=== PATIENT | female | born 1955 | race Two or more races ===

== ENCOUNTER → 2022-12-05 | Outpatient (CLI) | payer OTHER ==
[2022-12-05 08:00] LABS: Basophils # (auto) 0 10 ^3/uL (0-0.2); Basophils % (auto) 0.6 % (0.0-2.0); Eosinophils # (auto) 0.1 10 ^3/uL (0-0.8); Eosinophils % (auto) 3.3 % (0.0-7.0); Hematocrit 37.7 % (36.0-46.0); Hemoglobin 12.5 g/dL (12.2-16.2); Lymphocytes # (auto) 1.5 10 ^3/uL (0.4-5.4); Lymphocytes % (auto) 43.1 % (10.0-50.0); Mean Corpuscular Volume 90.8 fL (80.0-100.0); Monocytes # (auto) 0.4 10 ^3/uL (0-1.3); Monocytes % (auto) 11.2 % (0.0-12.0); Neutrophils # (auto) 1.5 10 ^3/uL (1.6-8.6); Neutrophils % (auto) 41.8 % (37.0-80.0); Nucleated Red Blood Cells % 0.1 %; Red Blood Cells 4.15 10^6/uL (4.0-5.20); Red Cell Distribution Width 14.6 % (11.8-14.3); White Blood Cell 3.5 10^3/uL (4.4-10.8)
[2022-12-05 08:18] LABS: Urine Bacteria NONE SEEN /hpf (None Seen); Urine Blood 1+ /uL (Negative); Urine Hyaline Cast FEW /lpf (0 - 2); Urine Mucus FEW (None Seen); Urine Specific Gravity 1.013 (1.001-1.035); Urine WBC 67 /hpf (0 - 5)
[2022-12-05 08:55] LABS: Magnesium 2.2 mg/dL (1.6-2.6); Potassium 4.5 mmol/L (3.5-5.1)
[2022-12-05 09:05] LABS: Albumin 3.9 g/dL (3.4-5.0); BUN/Creatinine Ratio 30.7 (10.0-20.0); Bilirubin, Total 0.4 mg/dL (0.2-1.0); Calcium 9.3 mg/dL (8.5-10.1); Total Protein 7.8 g/dL (6.4-8.2); Uric Acid 5.6 mg/dL (2.6-6.0)
[2022-12-05 09:08] LABS: Folate (Folic Acid) > 24.00 ng/mL (5.38-24)
== END | disposition home or self-care (01) ==
LOC: LAB 07:36
PROVIDERS: ATTEND Nurse Practitioner Family
DX: I10 Essential (primary) hypertension (principal); E78.5 Hyperlipidemia, unspecified; J30.9 Allergic rhinitis, unspecified; H60.503 Unspecified acute noninfective otitis externa, bilateral
CPT/HCPCS: 36415; 80053; 80061; 81001; 82306; 82607; 82746; 83036; 83735; 84443; 84550; 85025; 87086

== ENCOUNTER → 2023-06-26 | Outpatient (CLI) | payer OTHER ==
[2023-06-26 10:24] LABS: Basophils # (auto) 0 10 ^3/uL (0-0.2); Basophils % (auto) 0.5 % (0.0-2.0); Eosinophils # (auto) 0.1 10 ^3/uL (0-0.8); Eosinophils % (auto) 2.9 % (0.0-7.0); Hematocrit 37.8 % (36.0-46.0); Hemoglobin 12.5 g/dL (12.2-16.2); Lymphocytes # (auto) 1.5 10 ^3/uL (0.4-5.4); Lymphocytes % (auto) 49.3 % (10.0-50.0); Mean Corpuscular Hgb Conc. 33.1 g/dL (32.0-36.0); Mean Corpuscular Volume 90.9 fL (80.0-100.0); Monocytes # (auto) 0.3 10 ^3/uL (0-1.3); Monocytes % (auto) 9.4 % (0.0-12.0); Neutrophils # (auto) 1.2 10 ^3/uL (1.6-8.6); Neutrophils % (auto) 37.9 % (37.0-80.0); Nucleated Red Blood Cells % 0.1 %; Red Blood Cells 4.16 10^6/uL (4.0-5.20); Red Cell Distribution Width 13.8 % (11.8-14.3); White Blood Cell 3.1 10^3/uL (4.4-10.8)
[2023-06-26 10:55] LABS: Urine Bacteria NONE SEEN /hpf (None Seen); Urine Blood 2+ /uL (Negative); Urine Clarity HAZY (Clear); Urine Color Yellow (Yellow); Urine Mucus FEW (None Seen); Urine Protein, UAD 1+ (Negative); Urine Specific Gravity 1.016 (1.001-1.035); Urine Urobilinogen Normal (Negative); Urine WBC 145 /hpf (0 - 5); Urine WBC Clumps PRESENT /hpf (None Seen); Urine pH 5.5 (5.0-8.0)
[2023-06-26 11:09] LABS: Folate (Folic Acid) > 24.00 ng/mL (>5.38)
[2023-06-26 11:49] LABS: Alanine Aminotransferase 15 U/L (7-40); Alkaline Phosphatase 61 U/L (46-116); Chloride 107 mmol/L (98-107); Potassium 4.3 mmol/L (3.5-5.1); Sodium 141 mmol/L (136-145)
[2023-06-26 11:50] LABS: Anion Gap 9 (5-15); Calcium 10.1 mg/dL (8.5-10.1); Carbon Dioxide 25 mmol/L (20-30)
[2023-06-26 11:55] LABS: BUN/Creatinine Ratio 20.7 (10.0-20.0); Blood Urea Nitrogen 17 mg/dL (9-23); Glucose 91 mg/dL (74-106); Triglycerides 70 mg/dL (< 150)
[2023-06-26 11:56] LABS: LDL Cholesterol 61 mg/dL (< 100)
[2023-06-26 11:57] LABS: Albumin 4.6 g/dL (3.2-4.8); Aspartate Aminotransferase 20 U/L (13-40); Bilirubin, Total 0.5 mg/dL (0.2-1.0); Cholesterol 149 mg/dL (< 200); HDL Cholesterol 71 mg/dL (40-59); Total Protein 7.5 g/dL (5.7-8.2)
[2023-06-26 13:28] LABS: Uric Acid 5.1 mg/dL (3.1-7.8)
== END | disposition home or self-care (01) ==
LOC: LAB 09:49
PROVIDERS: ATTEND Internal Medicine
DX: E61.2 Magnesium deficiency (principal); E79.0 Hyperuricemia without signs of inflammatory arthritis and tophaceous disease; R94.6 Abnormal results of thyroid function studies; E55.9 Vitamin D deficiency, unspecified; R82.998 Other abnormal findings in urine; D51.9 Vitamin B12 deficiency anemia, unspecified; R82.79 Other abnormal findings on microbiological examination of urine; R78.89 Finding of other specified substances, not normally found in blood; E78.49 Other hyperlipidemia; R68.89 Other general symptoms and signs; R73.09 Other abnormal glucose
CPT/HCPCS: 36415; 80053; 80061; 81001; 82306; 82607; 82746; 83036; 83735; 84443; 84550; 85025; 87086

== ENCOUNTER → 2023-12-04 | Outpatient (CLI) | payer OTHER ==
[2023-12-04 08:43] LABS: Basophils # (auto) 0 10 ^3/uL (0-0.2); Basophils % (auto) 0.5 % (0.0-2.0); Eosinophils # (auto) 0.1 10 ^3/uL (0-0.8); Hemoglobin 11.9 g/dL (12.2-16.2); Lymphocytes # (auto) 1.2 10 ^3/uL (0.4-5.4); Lymphocytes % (auto) 41.9 % (10.0-50.0); Mean Corpuscular Hgb Conc. 33.1 g/dL (32.0-36.0); Mean Corpuscular Volume 90.6 fL (80.0-100.0); Monocytes # (auto) 0.3 10 ^3/uL (0-1.3); Monocytes % (auto) 9.1 % (0.0-12.0); Neutrophils # (auto) 1.3 10 ^3/uL (1.6-8.6); Neutrophils % (auto) 43.5 % (37.0-80.0); Red Blood Cells 3.98 10^6/uL (4.0-5.20); Red Cell Distribution Width 14.7 % (11.8-14.3); White Blood Cell 2.9 10^3/uL (4.4-10.8)
[2023-12-04 09:06] LABS: Alanine Aminotransferase 22 U/L (7-40); Albumin 4.5 g/dL (3.2-4.8); Alkaline Phosphatase 67 U/L (46-116); Anion Gap 5 (5-15); Aspartate Aminotransferase 44 U/L (13-40); BUN/Creatinine Ratio 29.4 (10.0-20.0); Blood Urea Nitrogen 25 mg/dL (9-23); Carbon Dioxide 27 mmol/L (20-30); Chloride 109 mmol/L (98-107); Cholesterol 172 mg/dL (< 200); Glucose 86 mg/dL (74-106); HDL Cholesterol 69 mg/dL (40-59); LDL Cholesterol 70 mg/dL (< 100); Potassium 4.2 mmol/L (3.5-5.1); Sodium 141 mmol/L (136-145); Triglycerides 96 mg/dL (< 150)
[2023-12-04 09:07] LABS: Bilirubin, Total 0.6 mg/dL (0.2-1.0); Total Protein 7.3 g/dL (5.7-8.2)
[2023-12-04 09:26] LABS: Folate (Folic Acid) 32.33 ng/mL (>5.38)
[2023-12-04 09:30] LABS: Magnesium 1.9 mg/dL (1.6-2.6)
== END | disposition home or self-care (01) ==
LOC: LAB 08:13
PROVIDERS: ATTEND Internal Medicine
DX: I10 Essential (primary) hypertension (principal); E78.5 Hyperlipidemia, unspecified; R73.03 Prediabetes; R79.89 Other specified abnormal findings of blood chemistry; R78.89 Finding of other specified substances, not normally found in blood
CPT/HCPCS: 36415; 80053; 80061; 82306; 82607; 82746; 83036; 83735; 84443; 84550; 85025; 87086

== ENCOUNTER → 2024-05-23 | Outpatient (CLI) | payer OTHER ==
[2024-05-23 14:15] LABS: Basophils # (auto) 0 10 ^3/uL (0-0.2); Basophils % (auto) 0.2 % (0.0-2.0); Eosinophils # (auto) 0.1 10 ^3/uL (0-0.8); Eosinophils % (auto) 2.1 % (0.0-7.0); Hematocrit 38.1 % (36.0-46.0); Lymphocytes # (auto) 1.4 10 ^3/uL (0.4-5.4); Lymphocytes % (auto) 36.1 % (10.0-50.0); Mean Corpuscular Hemoglobin 30.9 pg (28.0-32.0); Mean Corpuscular Hgb Conc. 34.1 g/dL (32.0-36.0); Mean Corpuscular Volume 90.6 fL (80.0-100.0); Monocytes # (auto) 0.3 10 ^3/uL (0-1.3); Monocytes % (auto) 8.3 % (0.0-12.0); Neutrophils # (auto) 2.1 10 ^3/uL (1.6-8.6); Neutrophils % (auto) 53.3 % (37.0-80.0); Nucleated Red Blood Cells % 0.1 %; Platelet Count (auto) 279 10^3/uL (140-450); Red Cell Distribution Width 14.1 % (11.8-14.3); White Blood Cell 3.9 10^3/uL (4.4-10.8)
[2024-05-23 14:51] LABS: Urine Bacteria FEW /hpf (None Seen); Urine Blood 3+ /uL (Negative); Urine Mucus FEW (None Seen); Urine Protein, UAD 2+ (Negative); Urine Specific Gravity 1.015 (1.001-1.035); Urine Urobilinogen Normal (Negative); Urine WBC 535 /hpf (0 - 5); Urine WBC Clumps PRESENT /hpf (None Seen)
[2024-05-23 14:52] LABS: Urine Clarity Cloudy (Clear); Urine Color Yellow (Yellow)
[2024-05-23 14:53] LABS: Alanine Aminotransferase 16 U/L (7-40); Albumin 4.9 g/dL (3.2-4.8); Alkaline Phosphatase 65 U/L (46-116); Anion Gap 7 (5-15); Aspartate Aminotransferase 21 U/L (13-40); BUN/Creatinine Ratio 22.5 (10.0-20.0); Blood Urea Nitrogen 23 mg/dL (9-23); Calcium 10.7 mg/dL (8.7-10.4); Carbon Dioxide 27 mmol/L (20-31); Chloride 107 mmol/L (98-107); Cholesterol 169 mg/dL (< 200); Glucose 89 mg/dL (74-106); HDL Cholesterol 78 mg/dL (40-59); LDL Cholesterol 70 mg/dL (< 100); Magnesium 2.2 mg/dL (1.6-2.6); Sodium 141 mmol/L (136-145); Triglycerides 76 mg/dL (< 150)
[2024-05-23 14:54] LABS: Bilirubin, Total 0.6 mg/dL (0.2-1.0)
[2024-05-23 15:03] LABS: Uric Acid 5.9 mg/dL (3.1-7.8)
[2024-05-23 15:23] LABS: Folate (Folic Acid) > 48.00 ng/mL (>5.38)
== END | disposition home or self-care (01) ==
LOC: LAB 13:51
PROVIDERS: ATTEND Internal Medicine
DX: I10 Essential (primary) hypertension (principal); E78.5 Hyperlipidemia, unspecified; N39.0 Urinary tract infection, site not specified; R79.89 Other specified abnormal findings of blood chemistry
CPT/HCPCS: 36415; 80053; 80061; 81001; 82306; 82607; 82746; 83036; 83735; 84443; 84550; 85025; 87086

== ENCOUNTER 2024-06-27 15:23 | Inpatient (IN) | payer OTHER ==
[~2024-06-27] VITALS: Ht 152.4 cm; Wt 82.0 kg
--- NOTE | 2024-06-27 16:46 | DVH ---
Exam: CT CT AB PEL WO CON-NO ORAL OR IV History: pelvic pain Comparison Study: None Technique: Multidetector spiral CT of the abdomen and pelvis was performed from lung bases to pubic symphysis. Imaging was performed without IV contrast. Axial, coronal and sagittal multiplanar reform ats were obtained from the axial data set by the technologist. Radiation dose : Abdomen/Pelvis: CTDIvol 9 mGy, DLP 455.17 mGy*cm. Findings: Evaluation of solid organs is limited due to lack of intravenous contrast use. Lung Bases: No acute or significant lung base finding. Normal heart size. No pleural or pericardial effusion. Liver: The liver is normal in size. No focal lesions. Gallbladder and biliary Tree: Unremarkable Spleen: Unremarkable Pancreas: The pancreas is grossly normal in appearance. Adrenal Glands: Unremarkable Kidneys: Moderate to severe left hydronephrosis and hydroureter. No right hydronephrosis. Bladder: Soft tissue density filling most of the bladder measuring up to approximately 81 mm concerni ng for a bladder malignancy. Bowel: The stomach is grossly normal in appearance. Small bowel and colon are normal in caliber and d istribution. The appendix is not visualized; however, no secondary findings of acute appendicitis id entified. Ascites: Absent Lymphadenopathy: No mesenteric, retroperitoneal or periportal lymphadenopathy. Abdominal wall and Mesentery: Unremarkable. Vasculature: The visualized abdominal aorta is normal in size and caliber. Evaluation of abdominal a nd pelvic vessels is limited due to lack of intravenous contrast. Pelvic Organs: Unremarkable Musculoskeletal: Dextroscoliosis with associated multilevel degenerative disease. Grade 1 anterolisth esis of L4 on L5. IMPRESSION: 1. Moderate to severe left hydronephrosis. Large soft tissue mass replacing most of the bladder conc erning for bladder malignancy. Recommend urology evaluation. Lesion could be further evaluated with CT urogram and/or MRI of the pelvis with contrast. Clinical correlation and continued follow-up is re commended. Radiation optimization: All CT scans at this facility use at least one of these dose optimization marcin hniques: Automated exposure control mA and/or kV adjustment per patient size (includes targeted exams where dose is matched to clinical indication) or iterative reconstruction. HS:Y
--- NOTE | 2024-06-27 16:55 | ED.PDOC ---
General HPI Comments HPI: Poor Historian. 69-year-old female presents for evaluation of left lower quadrant pain and suprapubic pain with the associated increased urinary frequency and painful urination. She was treated for UTI proximally a week ago and finished the course. Her symptoms have returned. She said two days ago she had some mild he maturia which has resolved. Her urine now is normal in color. Denies any other associated symptoms. She went to urgent Care was sent here for further evaluation. 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 HEAD: Denies acute: headache, photophobia Eyes: Denies acute: Double vision, vision loss, eye pain, eye discharge. EARS: Denies acute: tinnitus, hearing loss, ear discharge, ear pain, THROAT: Denies acute: sore throat, swelling, difficulty swallowing , pain with swallowing, change in voice. NECK: Denies acute: neck pain, neck swelling, stiff neck. HEART: Denies acute : chest pain, palpitations, LUNGS: Denies acute: SOB, wheezing, cough, hemoptysis ABDOMEN: Denies acute: Nausea, Vomiting, diarrhea, melena , hematemesis, hematochezia SKIN: Denies acute: rash, redness, lesions, itchiness. EXTREMITIES: Denies acute: calf pain, numbness, tingling, weakness, denies pain in extremity. Denies acute: Low back pain. Neuro: Denies acute: focal neurological deficit, motor or sensory focal neurological deficit, tremors, seizure like activity, confusion, dizziness, change in mental status, loss of bowel or bladder function, cauda equina like symptoms. : Denies acute: hematuria, flank pain, PSYCH: Denies acute: hallucination, suicidal ideation, homicidal ideation. FEMALE: Denies acute: abnormal vaginal bleeding, foul odor, unusual discharge. PHYSICAL EXAM: General: no acute distress, awake and alert. Head: normocephalic, atraumatic. Neck: supple, trachea is midline, no swelling. Throat: Normal phonation. Eyes:, no erythema, no purulent discharge, no proptosis, no icterus. Heart: regular rate, regular rhythm, no significant murmur appreciated. Lungs: no apparent respiratory distress, Able to speak in full sentences. No wheezing, no rhonchi, no crackles. No stridors Clear to auscultation bilaterally. Abdomen: Left lower quadrant and suprapubic tender to palpation, non distended, soft, no guarding, no rebound, + bowel sounds. Neuro: Awake, Alert, oriented to name, self, situation, follows commands GCS=15. Speech is normal. Skin: no petechia, no purpura, no cyanosis, non-pale, not jaundice. Lower extremities: --no - Pitting edema no deformity, no focal swelling, no calf TTP. Makes eye contact. moves all four extremities. Face: no apparent facial droop. No CVA tenderness to percussion bilaterally. Ambulating in the ED independently. Chief Complaint: Pelvic Pain Time Seen by MD: 15:33 Reviewed notes: Nurses Notes, Medications, Allergies Allergies: Coded Allergies: NO KNOWN ALLERGIES (Unverified , 06/27/24) Home Meds Reported Medications Cetirizine Hcl (Zyrtec Allergy) 10 Mg Cap, 10 MG PO DAILY for SEASONAL ALLERGIES, CAP 06/28/24 Enalapril Maleate (Enalapril Maleate) 20 Mg Tab, 1 TAB PO DAILY 06/28/24 Rosuvastatin Calcium (Rosuvastatin Calcium) 10 Mg Tab, 1 TAB PO 06/28/24 Information Source: Patient Mode of Arrival: Ambulatory Was a procedure done? Was a procedure done?: No Differential Diagnosis Kidney stone (Female): N/A Urinary Problem (Male): Other (DDX include but not limited to diverticulitis, colitis, gastroenteritis, acute abdomen, SBO, enteritis, constipation, volvulus, appendicitis, Gallbladder disease, choledocolithiasis, ascending cholangitis, pancreatitis, intraAbdominal mass/neoplasm, hepatitis, UTI, pylonephritis, kidney stone, aneurysm, dissection, Inflammatory bowel disease, gastroparesis, ischemic bowel.) X-Ray, Labs, Meds, VS Vital Signs Date Time Temp Pulse Resp B/P (MAP) Pulse Ox O2 Delivery O2 Flow Rate FiO2 06/27/24 15:48 97.6 61 18 126/94 (105) 100 Lab Test 06/27/24 18:36 06/27/24 15:47 Range/Units White Blood Count 3.9 L 4.4-10.8 10^3/uL Red Blood Count 4.21 4.0-5.20 10^6/uL Hemoglobin 12.6 12.2-16.2 g/dL Hematocrit 37.9 36.0-46.0 % Mean Corpuscular Volume 89.9 80.0-100.0 fL Mean Corpuscular Hemoglobin 30.0 28.0-32.0 pg Mean Corpuscular Hemoglobin Concent 33.3 32.0-36.0 g/dL Red Cell Distribution Width 13.8 11.8-14.3 % Platelet Count 278 140-450 10^3/uL Mean Platelet Volume 7.3 6.9-10.8 fL Neutrophils (%) (Auto) 44.4 37.0-80.0 % Lymphocytes (%) (Auto) 43.1 10.0-50.0 % Monocytes (%) (Auto) 9.8 0.0-12.0 % Eosinophils (%) (Auto) 2.0 0.0-7.0 % Basophils (%) (Auto) 0.7 0.0-2.0 % Neutrophils # (Auto) 1.7 1.6-8.6 10 ^3/uL Lymphocytes # (Auto) 1.7 0.4-5.4 10 ^3/uL Monocytes # (Auto) 0.4 0-1.3 10 ^3/uL Eosinophils # (Auto) 0.1 0-0.8 10 ^3/uL Basophils # (Auto) 0 0-0.2 10 ^3/uL Nucleated Red Blood Cells 0.0 % Sodium Level 139 136-145 mmol/L Potassium Level 3.7 3.5-5.1 mmol/L Chloride Level 107 98-107 mmol/L Carbon Dioxide Level 24 20-31 mmol/L Anion Gap 8 5-15 Blood Urea Nitrogen 27 H 9-23 mg/dL Creatinine 1.01 0.550-1.02 mg/dL Glomerular Filtration Rate Calc 60 >90 mL/min BUN/Creatinine Ratio 26.7 H 10.0-20.0 Serum Glucose 91 74-106 mg/dL Lactic Acid Level 0.8 0.4-2.0 mmol/L Calcium Level 10.2 8.7-10.4 mg/dL Total Bilirubin 0.4 0.2-1.0 mg/dL Aspartate Amino Transferase (AST) 20 13-40 U/L Alanine Aminotransferase (ALT) 16 7-40 U/L Alkaline Phosphatase 72 46-116 U/L Total Protein 7.8 5.7-8.2 g/dL Albumin 4.8 3.2-4.8 g/dL Urine Color Light-brown Yellow Urine Clarity Turbid H Clear Urine pH 6.0 5.0-9.0 Urine Specific [place] 1.016 1.001-1.035 Urine Protein 2+ H Negative Urine Ketones Negative Negative Urine Blood 3+ H Negative /uL Urine Nitrite Negative Negative Urine Bilirubin Negative Negative Urine Urobilinogen Normal Negative mg/dL Urine Leukocyte Esterase Negative Negative /uL Urine RBC 1494 0 - 4 /hpf Urine WBC 189 0 - 5 /hpf Urine WBC Clumps Present None Seen /hpf Urine Squamous Epithelial Cells None seen <5 /hpf Urine Bacteria Few H None Seen /hpf Urine Mucus Few None Seen Urine Glucose Normal Normal mg/dL Microbiology Date/Time Source Procedure Growth Status 06/27/24 15:47 Voided Urine Urine Culture - Final Escherichia coli - ESBL Complete [place] [address] Ph: [phone] DIAGNOSTIC IMAGING Diagnostic Imaging Report : [id number] Signed PATIENT: JET SALEH MACCT: [id number] UNIT: [id number] : 1955 LOC: ER ROOM / BED: / AGE / SEX: 69 / F ADM STATUS: REG ER SERVICE [id number] ORDERING PHYSICIAN: LAYNE LANDIN DO PROCEDURE(s): ABPL - CT AB PEL WO CON-NO ORAL OR IV REASON: pelvic pain ORDER NUMBER(s): [id number], ACCESSION NUMBER(s): [id number] Exam: CT CT AB PEL WO CON-NO ORAL OR IV History: pelvic pain Comparison Study: None Technique: Multidetector spiral CT of the abdomen and pelvis was performed from lung bases to pubic symphysis. Imaging was performed without IV contrast. Axial, coronal and sagittal multiplanar reformats were obtained from the axial data set by the technologist. Radiation dose : Abdomen/Pelvis: CTDIvol 9 mGy, DLP 455.17 mGy*cm. Findings: Evaluation of solid organs is limited due to lack of intravenous contrast use. Lung Bases: No acute or significant lung base finding. Normal heart size. No pleural or pericardial effusion. Liver: The liver is normal in size. No focal lesions. Gallbladder and biliary Tree: Unremarkable Spleen: Unremarkable Pancreas: The pancreas is grossly normal in appearance. Adrenal Glands: Unremarkable Kidneys: Moderate to severe left hydronephrosis and hydroureter. No right hydronephrosis. Bladder: Soft tissue density filling most of the bladder measuring up to approximately 81 mm concerning for a bladder malignancy. Bowel: The stomach is grossly normal in appearance. Small bowel and colon are normal in caliber and distribution. The appendix is not visualized; however, no secondary findings of acute appendicitis identified. Ascites: Absent Lymphadenopathy: No mesenteric, retroperitoneal or periportal lymphadenopathy. Abdominal wall and Mesentery: Unremarkable. Vasculature: The visualized abdominal aorta is normal in size and caliber. Evaluation of abdominal and pelvic vessels is limited due to lack of intravenous contrast. Pelvic Organs: Unremarkable Musculoskeletal: Dextroscoliosis with associated multilevel degenerative disease. Grade 1 anterolisthesis of L4 on L5. IMPRESSION: 1. Moderate to severe left hydronephrosis. Large soft tissue mass replacing most of the bladder concerning for bladder malignancy. Recommend urology evaluation. Lesion could be further evaluated with CT urogram and/or MRI of the pelvis with contrast. Clinical correlation and continued follow-up is recommended. Radiation optimization: All CT scans at this facility use at least one of these dose optimization techniques: Automated exposure control mA and/or kV adjustment per patient size (includes targeted exams where dose is matched to clinical abdiel cation) or iterative reconstruction. HS:Y ATED BY: TONY EDWARDS MD DICTATED DATE/TIME: 06/27/241643 SIGNED BY: TONY EDWARDS MD SIGNED DATE/TIME: 06/27/241643 Time of 1ST Reevaluation: 00:00 Reevaluation 1ST: Unchanged Patient Education/Counseling: Diagnosis, Treatment Family Education/Counseling: No Family Present Comments Patient presented with the above HPI.---abdominal pain---workup was initiated. patient was found with the above mentioned diagnosis. the following medications were ordered: Rocephin the following tests were ordered: Labs, , UA, CT abdomen and pelvis Patient ED course and VS have been stabilized. Patient has been reassessed in the ED and remained in a stable condition. Pertinent incidental findings were discussed with the patient and/or family. Patient/family voices understanding and is agreeable with plan. Patient has been observed in the ED adequate length of time to insure improvement/stability. Escalation of care considered: Consideration of escalation to observation or admission Patient was ADMITTED to the medicine team for further evaluation and treatment of their presentation. All the reports of any imaging studies that were ordered by myself were reviewed by myself. Critical Care Note Critical Care Time?: No Departure Time of Disposition: 16:59 Disposition: 09 ADMITTED INPATIENT Diagnosis: UTI, abnormal finding on CT scan, pelvic mass. Condition: Guarded I personally scribed for LAYNE LANDIN DO ([email or web address]) on 06/28/24 at 19:09. Electronically submitted by Bassam Abarca ([email or web address]). LAYNE LANDIN DO Jun 27, 2024 16:55
[2024-06-27 18:20] LABS: Urine Bacteria FEW /hpf (None Seen); Urine Blood 3+ /uL (Negative); Urine Clarity Turbid (Clear); Urine Color Light-Brown (Yellow); Urine Mucus FEW (None Seen); Urine Protein, UAD 2+ (Negative); Urine Specific Gravity 1.016 (1.001-1.035); Urine Squamous Epithelial Cell None Seen /hpf (<5); Urine Urobilinogen Normal (Negative); Urine WBC 189 /hpf (0 - 5); Urine WBC Clumps PRESENT /hpf (None Seen)
[2024-06-27] MEDS ORDERED: ONDANSETRON HCL 4 MG/2 ML VIAL IV PRN (19:15)
[2024-06-27] MEDS ORDERED: ACETAMINOPHEN 325 MG TAB PO PRN (19:15)
[2024-06-27 20:03] LABS: Basophils # (auto) 0 10 ^3/uL (0-0.2); Basophils % (auto) 0.7 % (0.0-2.0); Eosinophils # (auto) 0.1 10 ^3/uL (0-0.8); Hematocrit 37.9 % (36.0-46.0); Hemoglobin 12.6 g/dL (12.2-16.2); Lymphocytes # (auto) 1.7 10 ^3/uL (0.4-5.4); Lymphocytes % (auto) 43.1 % (10.0-50.0); Mean Corpuscular Hgb Conc. 33.3 g/dL (32.0-36.0); Mean Corpuscular Volume 89.9 fL (80.0-100.0); Monocytes # (auto) 0.4 10 ^3/uL (0-1.3); Monocytes % (auto) 9.8 % (0.0-12.0); Neutrophils # (auto) 1.7 10 ^3/uL (1.6-8.6); Neutrophils % (auto) 44.4 % (37.0-80.0); Platelet Count (auto) 278 10^3/uL (140-450); Red Blood Cells 4.21 10^6/uL (4.0-5.20); Red Cell Distribution Width 13.8 % (11.8-14.3); White Blood Cell 3.9 10^3/uL (4.4-10.8)
[2024-06-27 20:24] LABS: Alanine Aminotransferase 16 U/L (7-40); Alkaline Phosphatase 72 U/L (46-116); Anion Gap 8 (5-15); BUN/Creatinine Ratio 26.7 (10.0-20.0); Calcium 10.2 mg/dL (8.7-10.4); Carbon Dioxide 24 mmol/L (20-31); Chloride 107 mmol/L (98-107); Glucose 91 mg/dL (74-106); Potassium 3.7 mmol/L (3.5-5.1); Sodium 139 mmol/L (136-145)
[2024-06-27 20:25] LABS: Albumin 4.8 g/dL (3.2-4.8); Aspartate Aminotransferase 20 U/L (13-40); Bilirubin, Total 0.4 mg/dL (0.2-1.0); Total Protein 7.8 g/dL (5.7-8.2)
[2024-06-27 20:35] LABS: Blood Urea Nitrogen 27 mg/dL (9-23)
--- NOTE | 2024-06-27 20:55 | DVHHP2 ---
History of Present Illness Reason for Visit: Pelvic pain History of Present Illness 69-year-old female presents for evaluation of left pelvic pain. Patient reports a three day history of worsening left lower quadrant/pelvic pain with associated dysuria and hematuria. Denies fever or chills. Denies recent weight loss. Denies any other acute complaints at the moment. Past Medical History Dyslipidemia and hypertension Past Surgical History Ovarian tumor removal Family History Noncontributory Smoke: No ALCOHOL: none Drugs: None Lives: with Family Review of Systems Review of Systems Review of systems are currently negative otherwise dressing HPI. Allergies: Coded Allergies: NO KNOWN ALLERGIES (Unverified , 06/27/24) Medications Current Medications Medications Dose Ordered Sig/Bruna Route Start Time Stop Time Status Last Admin Dose Admin Ceftriaxone Sodium 50 ml @ 100 mls/hr DAILY@09 IV 06/28/24 09:00 UNV Atorvastatin Calcium 10 mg HS PO 06/27/24 22:00 UNV Enalapril Maleate 10 mg DAILY PO 06/28/24 10:00 UNV Acetaminophen/ Hydrocodone Bitart 1 tab Q4HP PRN PO 06/27/24 19:15 UNV Ondansetron HCl 4 mg Q4HP PRN IV 06/27/24 19:15 UNV Acetaminophen 650 mg Q6HP PRN PO 06/27/24 19:15 UNV Exam Vital Signs Vital Signs Date Time Temp Pulse Resp B/P (MAP) Pulse Ox O2 Delivery O2 Flow Rate FiO2 06/27/24 19:16 98.6 70 16 131/78 (95) 98 98.6 Exam Gen: 69-year-old female in mild distress Skin: Warm, dry, normal color and texture, no rash. HEENT: Normocephalic atraumatic, mucous membranes moist and pink. Neck: Cervical and supraclavicular nodes normal without enlargement, trachea is midline, thyroid gland is normal without masses. Pulmonary: Clear to auscultation and percussion bilaterally. Cardiac: Regular rate and rhythm. No murmur Abdomen: Soft, left lower quadrant tenderness, nondistended, bowel sounds present all 4 quadrants, no guarding, no rigidity, no organomegaly. Extremities: No cyanosis, clubbing, no edema Neuro: Cranial nerves II through XII grossly intact, normal affect and speech, no focal motor deficits. Labs/Xrays ORDERING PHYSICIAN: LAYNE LANDIN DO PROCEDURE(s): ABPL - CT AB PEL WO CON-NO ORAL OR IV REASON: pelvic pain ORDER NUMBER(s): [id number], ACCESSION NUMBER(s): [id number] Exam: CT CT AB PEL WO CON-NO ORAL OR IV History: pelvic pain Comparison Study: None Technique: Multidetector spiral CT of the abdomen and pelvis was performed from lung bases to pubic symphysis. Imaging was performed without IV contrast. Axial, coronal and sagittal multiplanar reformats were obtained from the axial data set by the technologist. Radiation dose : Abdomen/Pelvis: CTDIvol 9 mGy, DLP 455.17 mGy*cm. Findings: Evaluation of solid organs is limited due to lack of intravenous contrast use. Lung Bases: No acute or significant lung base finding. Normal heart size. No pleural or pericardial effusion. Liver: The liver is normal in size. No focal lesions. Gallbladder and biliary Tree: Unremarkable Spleen: Unremarkable Pancreas: The pancreas is grossly normal in appearance. Adrenal Glands: Unremarkable Kidneys: Moderate to severe left hydronephrosis and hydroureter. No right h ydronephrosis. Bladder: Soft tissue density filling most of the bladder measuring up to approximately 81 mm concerning for a bladder malignancy. Bowel: The stomach is grossly normal in appearance. Small bowel and colon are normal in caliber and distribution. The appendix is not visualized; however, no secondary findings of acute appendicitis identified. Ascites: Absent Lymphadenopathy: No mesenteric, retroperitoneal or periportal lymphadenopathy. Abdominal wall and Mesentery: Unremarkable. Vasculature: The visualized abdominal aorta is normal in size and caliber. Evaluation of abdominal and pelvic vessels is limited due to lack of intravenous contrast. Pelvic Organs: Unremarkable Musculoskeletal: Dextroscoliosis with associated multilevel degenerative disease. Grade 1 anterolisthesis of L4 on L5. IMPRESSION: 1. Moderate to severe left hydronephrosis. Large soft tissue mass replacing most of the bladder concerning for bladder malignancy. Recommend urology evaluation. Lesion could be further evaluated with CT urogram and/or MRI of the pelvis with contrast. Clinical correlation and continued follow-up is recommended. Radiation optimization: All CT scans at this facility use at least one of these dose optimization techniques: Automated exposure control mA and/or kV adjustment per patient size (includes targeted exams where dose is matched to clinical indication) or iterative reconstruction. HS:Y Labs Test 06/27/24 18:36 06/27/24 15:47 Range/Units White Blood Count 3.9 L 4.4-10.8 10^3/uL Red Blood Count 4.21 4.0-5.20 10^6/uL Hemoglobin 12.6 12.2-16.2 g/dL Hematocrit 37.9 36.0-46.0 % Mean Corpuscular Volume 89.9 80.0-100.0 fL Mean Corpuscular Hemoglobin 30.0 28.0-32.0 pg Mean Corpuscular Hemoglobin Concent 33.3 32.0-36.0 g/dL Red Cell Distribution Width 13.8 11.8-14.3 % Platelet Count 278 140-450 10^3/uL Mean Platelet Volume 7.3 6.9-10.8 fL Neutrophils (%) (Auto) 44.4 37.0-80.0 % Lymphocytes (%) (Auto) 43.1 10.0-50.0 % Monocytes (%) (Auto) 9.8 0.0-12.0 % Eosinophils (%) (Auto) 2.0 0.0-7.0 % Basophils (%) (Auto) 0.7 0.0-2.0 % Neutrophils # (Auto) 1.7 1.6-8.6 10 ^3/uL Lymphocytes # (Auto) 1.7 0.4-5.4 10 ^3/uL Monocytes # (Auto) 0.4 0-1.3 10 ^3/uL Eosinophils # (Auto) 0.1 0-0.8 10 ^3/uL Basophils # (Auto) 0 0-0.2 10 ^3/uL Nucleated Red Blood Cells 0.0 % Sodium Level 139 136-145 mmol/L Potassium Level 3.7 3.5-5.1 mmol/L Chloride Level 107 98-107 mmol/L Carbon Dioxide Level 24 20-31 mmol/L Anion Gap 8 5-15 Blood Urea Nitrogen 27 H 9-23 mg/dL Creatinine 1.01 0.550-1.02 mg/dL Glomerular Filtration Rate Calc 60 >90 mL/min BUN/Creatinine Ratio 26.7 H 10.0-20.0 Serum Glucose 91 74-106 mg/dL Lactic Acid Level 0.8 0.4-2.0 mmol/L Calcium Level 10.2 8.7-10.4 mg/dL Total Bilirubin 0.4 0.2-1.0 mg/dL Aspartate Amino Transferase (AST) 20 13-40 U/L Alanine Aminotransferase (ALT) 16 7-40 U/L Alkaline Phosphatase 72 46-116 U/L Total Protein 7.8 5.7-8.2 g/dL Albumin 4.8 3.2-4.8 g/dL Urine Color Light-brown Yellow Urine Clarity Turbid H Clear Urine pH 6.0 5.0-9.0 Urine Specific [place] 1.016 1.001-1.035 Urine Protein 2+ H Negative Urine Ketones Negative Negative Urine Blood 3+ H Negative /uL Urine Nitrite Negative Negative Urine Bilirubin Negative Negative Urine Urobilinogen Normal Negative mg/dL Urine Leukocyte Esterase Negative Negative /uL Urine RBC 1494 0 - 4 /hpf Urine WBC 189 0 - 5 /hpf Urine WBC Clumps Present None Seen /hpf Urine Squamous Epithelial Cells None seen <5 /hpf Urine Bacteria Few H None Seen /hpf Urine Mucus Few None Seen Urine Glucose Normal Normal mg/dL Assessment/Plan Assessment/Plan Assessment Bladder mass rule out malignancy Acute cystitis Left hydronephrosis Plan Admit the patient to [facility] to the hospitalist Nephrology consultation Hematology/oncology consultation Pain management Rocephin Resume home medications Continue treatment per orders. Plan discussed with: Patient My Orders Orders - FRAZIERJULIA ESTRADA AGACNP Procedure Category Date Status Time Ceftriaxone 1gm/50ml PHA 06/28/24 Logged D5w (Rocephin) 09:00 Urine Bacterial JACOB 06/27/24 In Process Culture 19:08 * Urology Consult CONS 06/27/24 Transmitted 19:08 * Hematology/Oncology CONS 06/27/24 Transmitted Consult 19:08 Atorvastatin (Lipitor) PHA 06/27/24 Logged 22:00 Enalapril Tablet PHA 06/28/24 Logged (Vasotec Tablet) 10:00 Basic Metabolic Panel LAB 06/28/24 Verified 04:00 Admit ADMIT 06/27/24 Transmitted 19:08 Hydrocodone-Acet PHA 06/27/24 Logged 5/325mg Tab ([place] 19:15 Ondansetron Hcl PHA 06/27/24 Logged (Zofran) 19:15 Complete Blood Count LAB 06/28/24 Verified 04:00 Cardiac DIET 06/28/24 Transmitted Diet-2gna,Lofat,Lochol Breakfast Condition: Stable SAM 06/27/24 In Process 19:08 Acetaminophen Tablet PHA 06/27/24 Logged (Tylenol Tablet) 19:15 Bedrest With Bathroom SAM 06/27/24 In Process Privileg 19:08 Date of Service: Jun 27, 2024 Billing Provider: JULIA FRAZIER Common Visit Codes: [id number] INP/OBS CARE (HIGH) JULIA FRAZIER Jun 27, 2024 20:55
[2024-06-27] MEDS: cefTRIAXone 1GM/50ML D5W 50 ML IV ONE (21:47)
[2024-06-27 21:54] VITALS: PULSE 78; RESP 17; O2SAT 99
[2024-06-27 22:31] VITALS: BP 121/73; PULSE 65; RESP 18; TEMP 98.4; O2SAT 99
[2024-06-27] MEDS: ATORVASTATIN 20 MG TAB PO SCH (23:28)
[2024-06-28] VITALS (8 sets, daily range): BP systolic 103–119; BP diastolic 58–75; PULSE 62–72; RESP 17–20; TEMP 97.5–98.3; O2SAT 95–100
[2024-06-28 05:19] LABS: Basophils # (auto) 0 10 ^3/uL (0-0.2); Basophils % (auto) 0.2 % (0.0-2.0); Eosinophils # (auto) 0.1 10 ^3/uL (0-0.8); Eosinophils % (auto) 2.7 % (0.0-7.0); Hematocrit 37.5 % (36.0-46.0); Hemoglobin 12.5 g/dL (12.2-16.2); Lymphocytes # (auto) 1.7 10 ^3/uL (0.4-5.4); Lymphocytes % (auto) 40.9 % (10.0-50.0); Mean Corpuscular Hemoglobin 30.2 pg (28.0-32.0); Mean Corpuscular Hgb Conc. 33.4 g/dL (32.0-36.0); Mean Corpuscular Volume 90.5 fL (80.0-100.0); Monocytes # (auto) 0.5 10 ^3/uL (0-1.3); Monocytes % (auto) 11.4 % (0.0-12.0); Neutrophils # (auto) 1.8 10 ^3/uL (1.6-8.6); Neutrophils % (auto) 44.8 % (37.0-80.0); Platelet Count (auto) 270 10^3/uL (140-450); Red Blood Cells 4.14 10^6/uL (4.0-5.20); Red Cell Distribution Width 13.8 % (11.8-14.3); White Blood Cell 4.1 10^3/uL (4.4-10.8)
[2024-06-28 05:34] LABS: Anion Gap 6 (5-15); Carbon Dioxide 27 mmol/L (20-31); Potassium 3.5 mmol/L (3.5-5.1); Sodium 141 mmol/L (136-145)
[2024-06-28 05:35] LABS: Calcium 10.1 mg/dL (8.7-10.4)
[2024-06-28 05:40] LABS: Glucose 89 mg/dL (74-106)
[2024-06-28 05:51] LABS: Blood Urea Nitrogen 27 mg/dL (9-23); Chloride 108 mmol/L (98-107)
[2024-06-28] MEDS: HYDROcodone-ACET 5/325MG TAB PO PRN (08:51)
[2024-06-28] MEDS: ENALAPRIL MALEATE 10 MG TAB PO SCH (08:51)
--- NOTE | 2024-06-28 09:24 | DVHINCON2 ---
Date of service: Jun 28, 2024 Referring Physician Neil Rahman Reason for Consultation Bladder mass with left hydronephrosis History of Present Illness 69 years old female who is interviewed through the shearer helper. Has a history of hypertension and hyperlipidemia Gives a history of having lost 30 pounds of weight in the last 2 years. Has been having hematuria since May 27, 2024. Left flank pain over the last 4 days which has been getting worse and she was at the urgent care and with hematuria and left flank pain she was sent to the ER. She recently has been treated with antibiotics also. No nausea vomiting. No fevers night sweats no bruising. A CT of the abdomen pelvis without contrast showed moderate to severe left hydronephrosis. Large soft tissue mass replacing most of the bladder concerning for bladder malignancy. Her CBC showed a white count of 4.1 hemoglobin 12.5 platelets 270,000 with a normal differential. GFR 69 normal liver functions. Total protein 7.8 albumin 4.8 Past Medical History Hypertension Hyperlipidemia Right knee surgery Family History Unremarkable for malignancy or hematological disorders Social History No smoking drinking or illicit drugs Allergies: Coded Allergies: NO KNOWN ALLERGIES (Unverified , 06/27/24) Current Medications Current Medications Medications (Trade) Dose Ordered Sig/Bruna Route PRN Reason Start Time Stop Time Status Last Admin Ceftriaxone Sodium 50 ml @ 100 mls/hr DAILY@09 IV 06/28/24 09:00 Atorvastatin Calcium (Lipitor) 10 mg HS PO 06/27/24 22:00 06/27/24 23:28 Enalapril Maleate (Vasotec Tablet) 10 mg DAILY PO 06/28/24 10:00 06/28/24 08:51 Acetaminophen/ Hydrocodone Bitart ([place] 5/325MG Tab) 1 tab Q4HP PRN PO MODERATE PAIN (4-6 PAIN SCALE) 06/27/24 19:15 06/28/24 08:51 Ondansetron HCl (Zofran) 4 mg Q4HP PRN IV NAUSEA / VOMITING 06/27/24 19:15 Acetaminophen (Tylenol Tablet) 650 mg Q6HP PRN PO PAIN SCALE 1-3 OR TEMP>100.4 06/27/24 19:15 Vital Signs Vital Signs Date Time Temp Pulse Resp B/P (MAP) Pulse Ox O2 Delivery O2 Flow Rate FiO2 06/28/24 08:51 112/63 06/28/24 07:58 98.3 67 18 95 98.3 06/27/24 21:54 Room Air* 0 21 Physical Exam GENERAL: The patient is a moderately built and nourished ,in no distress, alert and oriented. HEAD AND NECK: Unremarkable. No neck nodes or masses. Conjunctivae: Unremarkable for any mucosal hemorrhage or inflammation. Thyroid is nonpalpable. Throat is unremarkable. SPINE: No deformities or tenderness. CHEST: Chest wall, no tenderness. LUNGS: Clear. CARDIOVASCULAR: Regular sinus rhythm. No murmurs or gallops. ABDOMEN: No organomegaly, or ascites. Bowel sounds present. She is tender in the left flank/left upper quadrant of the abdomen EXTREMITIES: No clubbing, edema or cyanosis. Peripheral pulses palpable. No calf tenderness. LYMPHATICS: No significant lymphadenopathy. NEUROLOGIC: No focal neurological deficits. SKIN: Unremarkable for any petechiae, purpura, or ecchymosis. Psych: No abnormalities Available data reviewed Labs/Diagnostic Data Labs Test 06/28/24 04:12 06/27/24 18:36 06/27/24 15:47 Range/Units White Blood Count 4.1 L 4.4-10.8 10^3/uL Red Blood Count 4.14 4.0-5.20 10^6/uL Hemoglobin 12.5 12.2-16.2 g/dL Hematocrit 37.5 36.0-46.0 % Mean Corpuscular Volume 90.5 80.0-100.0 fL Mean Corpuscular Hemoglobin 30.2 28.0-32.0 pg Mean Corpuscular Hemoglobin Concent 33.4 32.0-36.0 g/dL Red Cell Distribution Width 13.8 11.8-14.3 % Platelet Count 270 140-450 10^3/uL Mean Platelet Volume 7.0 6.9-10.8 fL Neutrophils (%) (Auto) 44.8 37.0-80.0 % Lymphocytes (%) (Auto) 40.9 10.0-50.0 % Monocytes (%) (Auto) 11.4 0.0-12.0 % Eosinophils (%) (Auto) 2.7 0.0-7.0 % Basophils (%) (Auto) 0.2 0.0-2.0 % Neutrophils # (Auto) 1.8 1.6-8.6 10 ^3/uL Lymphocytes # (Auto) 1.7 0.4-5.4 10 ^3/uL Monocytes # (Auto) 0.5 0-1.3 10 ^3/uL Eosinophils # (Auto) 0.1 0-0.8 10 ^3/uL Basophils # (Auto) 0 0-0.2 10 ^3/uL Nucleated Red Blood Cells 0.0 % Sodium Level 141 136-145 mmol/L Potassium Level 3.5 3.5-5.1 mmol/L Chloride Level 108 H 98-107 mmol/L Carbon Dioxide Level 27 20-31 mmol/L Anion Gap 6 5-15 Blood Urea Nitrogen 27 H 9-23 mg/dL Creatinine 0.90 0.550-1.02 mg/dL Glomerular Filtration Rate Calc 69 >90 mL/min BUN/Creatinine Ratio 30.0 H 10.0-20.0 Serum Glucose 89 74-106 mg/dL Calcium Level 10.1 8.7-10.4 mg/dL Lactic Acid Level 0.8 0.4-2.0 mmol/L Total Bilirubin 0.4 0.2-1.0 mg/dL Aspartate Amino Transferase (AST) 20 13-40 U/L Alanine Aminotransferase (ALT) 16 7-40 U/L Alkaline Phosphatase 72 46-116 U/L Total Protein 7.8 5.7-8.2 g/dL Albumin 4.8 3.2-4.8 g/dL Urine Color Light-brown Yellow Urine Clarity Turbid H Clear Urine pH 6.0 5.0-9.0 Urine Specific [place] 1.016 1.001-1.035 Urine Protein 2+ H Negative Urine Ketones Negative Negative Urine Blood 3+ H Negative /uL Urine Nitrite Negative Negative Urine Bilirubin Negative Negative Urine Urobilinogen Normal Negative mg/dL Urine Leukocyte Esterase Negative Negative /uL Urine RBC 1494 0 - 4 /hpf Urine WBC 189 0 - 5 /hpf Urine WBC Clumps Present None Seen /hpf Urine Squamous Epithelial Cells None seen <5 /hpf Urine Bacteria Few H None Seen /hpf Urine Mucus Few None Seen Urine Glucose Normal Normal mg/dL Assessment 1. Rule out bladder cancer with left hydronephrosis causing pains hematuria and weight loss 2. Hypertension 3. Hyperlipidemia Plan/Recommendation Cystoscopic evaluation The patient will follow-up with me after the procedure and after discharge Plan discussed with: Patient ROSALIO DELEON MD Jun 28, 2024 09:24
[2024-06-28] MEDS ORDERED: MELO15TA29 PO (10:55)
[2024-06-28] MEDS ORDERED: CIPR500T4 PO (10:55)
[2024-06-28] MEDS ORDERED: ROSU10TA64 PO (10:55)
[2024-06-28] MEDS ORDERED: ENAL1TAB48 PO (10:55)
[2024-06-28] MEDS ORDERED: CETI10CA PO (11:20)
[2024-06-28] MEDS: cefTRIAXone 1GM/50ML D5W 50 ML IV SCH (11:42)
--- NOTE | 2024-06-28 17:01 | DVHPN2 ---
Subjective in bed resting some abdominal pain Changes from previous H/P or p: No Changes Objective Vitals Vital Signs Date Time Temp Pulse Resp B/P (MAP) Pulse Ox O2 Delivery O2 Flow Rate FiO2 06/28/24 16:36 97.7 64 18 103/64 (77) 99 97.7 06/28/24 10:48 Room Air* 0 21 Intake/Output Intake and Output 06/28/24 05:00 Intake Total 50 ml Balance 50 ml Intake IV Total 50 ml General Appearance: Alert, Oriented X3 Lungs: Clear to auscultation Abdomen: Normal bowel sounds, Soft, No tenderness Medications Current Medications Medications Dose Ordered Sig/Bruna Route Start Time Stop Time Status Last Admin Dose Admin Ceftriaxone Sodium 50 ml @ 100 mls/hr DAILY@09 IV 06/28/24 09:00 06/28/24 11:42 100 MLS/HR Atorvastatin Calcium 10 mg HS PO 06/27/24 22:00 06/27/24 23:28 10 MG Enalapril Maleate 10 mg DAILY PO 06/28/24 10:00 06/28/24 08:51 10 MG Acetaminophen/ Hydrocodone Bitart 1 tab Q4HP PRN PO 06/27/24 19:15 06/28/24 08:51 1 TAB Ondansetron HCl 4 mg Q4HP PRN IV 06/27/24 19:15 Acetaminophen 650 mg Q6HP PRN PO 06/27/24 19:15 Laboratory Results Laboratory Tests 06/28/24 04:12 Chemistry Test 06/27/24 18:36 06/28/24 04:12 Albumin 4.8 g/dL (3.2-4.8) Calcium Level 10.2 mg/dL (8.7-10.4) 10.1 mg/dL (8.7-10.4) Total Protein 7.8 g/dL (5.7-8.2) LFT Test 06/27/24 18:36 Alanine Aminotransferase (ALT) 16 U/L (7-40) Alkaline Phosphatase 72 U/L (46-116) Aspartate Amino Transferase (AST) 20 U/L (13-40) Total Bilirubin 0.4 mg/dL (0.2-1.0) Urinalysis Test 06/27/24 15:47 Urine Color Light-brown (Yellow) Urine Clarity Turbid (Clear) H Urine pH 6.0 (5.0-9.0) Urine Specific [place] 1.016 (1.001-1.035) Urine Protein 2+ (Negative) H Urine Ketones Negative (Negative) Urine Blood 3+ /uL (Negative) H Urine Nitrite Negative (Negative) Urine Bilirubin Negative (Negative) Urine Urobilinogen Normal mg/dL (Negative) Urine Leukocyte Esterase Negative /uL (Negative) Urine RBC 1494 /hpf (0 - 4) Urine WBC 189 /hpf (0 - 5) Urine WBC Clumps Present /hpf (None Seen) Urine Squamous Epithelial Cells None seen /hpf (<5) Urine Bacteria Few /hpf (None Seen) H Urine Mucus Few (None Seen) Urine Glucose Normal mg/dL (Normal) Microbiology Microbiology Date/Time Source Procedure Growth Status 06/27/24 15:47 Voided Urine Urine Culture - Preliminary Resulted Assessment/Plan Assessment/Plan Bladder mass rule out malignancy Acute cystitis Left hydronephrosis Monitor Hb per urology going for cystoscopy and will follow as outpatient possible discharge tomorrow Plan discussed with: Patient Date of Service: Jun 28, 2024 Billing Provider: JIMMIE MAYERS MD Common Visit Codes: [id number] INP/OBS CARE(HIGH) JIMMIE MAYERS MD Jun 28, 2024 17:01
[2024-06-29] VITALS (9 sets, daily range): BP systolic 95–127; BP diastolic 55–78; PULSE 58–85; RESP 17–20; TEMP 36.8; O2SAT 97–100
[2024-06-29] MEDS ORDERED: CIP500T PO (10:52)
--- NOTE | 2024-06-29 10:57 | DVHDS2 ---
Discharge Summary Date of Admission Jun 27, 2024 at 19:08 Date of Discharge: Jun 29, 2024 Admitting Diagnosis Moderate to severe left hydronephrosis Labs/Diagnostic Data: Laboratory Results Test 06/28/24 04:12 06/27/24 18:36 06/27/24 15:47 White Blood Count 4.1 10^3/uL (4.4-10.8) Red Blood Count 4.14 10^6/uL (4.0-5.20) Hemoglobin 12.5 g/dL (12.2-16.2) Hematocrit 37.5 % (36.0-46.0) Mean Corpuscular Volume 90.5 fL (80.0-100.0) Mean Corpuscular Hemoglobin 30.2 pg (28.0-32.0) Mean Corpuscular Hemoglobin Concent 33.4 g/dL (32.0-36.0) Red Cell Distribution Width 13.8 % (11.8-14.3) Platelet Count 270 10^3/uL (140-450) Mean Platelet Volume 7.0 fL (6.9-10.8) Neutrophils (%) (Auto) 44.8 % (37.0-80.0) Lymphocytes (%) (Auto) 40.9 % (10.0-50.0) Monocytes (%) (Auto) 11.4 % (0.0-12.0) Eosinophils (%) (Auto) 2.7 % (0.0-7.0) Basophils (%) (Auto) 0.2 % (0.0-2.0) Neutrophils # (Auto) 1.8 10 ^3/uL (1.6-8.6) Lymphocytes # (Auto) 1.7 10 ^3/uL (0.4-5.4) Monocytes # (Auto) 0.5 10 ^3/uL (0-1.3) Eosinophils # (Auto) 0.1 10 ^3/uL (0-0.8) Basophils # (Auto) 0 10 ^3/uL (0-0.2) Nucleated Red Blood Cells 0.0 % Sodium Level 141 mmol/L (136-145) Potassium Level 3.5 mmol/L (3.5-5.1) Chloride Level 108 mmol/L (98-107) Carbon Dioxide Level 27 mmol/L (20-31) Anion Gap 6 (5-15) Blood Urea Nitrogen 27 mg/dL (9-23) Creatinine 0.90 mg/dL (0.550-1.02) Glomerular Filtration Rate Calc 69 mL/min (>90) BUN/Creatinine Ratio 30.0 (10.0-20.0) Serum Glucose 89 mg/dL (74-106) Calcium Level 10.1 mg/dL (8.7-10.4) Lactic Acid Level 0.8 mmol/L (0.4-2.0) Total Bilirubin 0.4 mg/dL (0.2-1.0) Aspartate Amino Transferase (AST) 20 U/L (13-40) Alanine Aminotransferase (ALT) 16 U/L (7-40) Alkaline Phosphatase 72 U/L (46-116) Total Protein 7.8 g/dL (5.7-8.2) Albumin 4.8 g/dL (3.2-4.8) Urine Color Light-brown (Yellow) Urine Clarity Turbid (Clear) Urine pH 6.0 (5.0-9.0) Urine Specific [place] 1.016 (1.001-1.035) Urine Protein 2+ (Negative) Urine Ketones Negative (Negative) Urine Blood 3+ /uL (Negative) Urine Nitrite Negative (Negative) Urine Bilirubin Negative (Negative) Urine Urobilinogen Normal mg/dL (Negative) Urine Leukocyte Esterase Negative /uL (Negative) Urine RBC 1494 /hpf (0 - 4) Urine WBC 189 /hpf (0 - 5) Urine WBC Clumps Present /hpf (None Seen) Urine Squamous Epithelial Cells None seen /hpf (<5) Urine Bacteria Few /hpf (None Seen) Urine Mucus Few (None Seen) Urine Glucose Normal mg/dL (Normal) Other Laboratory Tests 06/28/24 04:12 Brief Hx & Hospital Course: 69 years old female who is interviewed through the educational sign language interpreter. Has a history of hypertension and hyperlipidemia Gives a history of having lost 30 pounds of weight in the last 2 years. Has been having hematuria since May 27, 2024. Left flank pain over the last 4 days which has been getting worse and she was at the urgent care and with hematuria and left flank pain she was sent to the ER. She recently has been treated with antibiotics also. No nausea vomiting. No fevers night sweats no bruising. A CT of the abdomen pelvis without contrast showed moderate to severe left hydronephrosis. Large soft tissue mass replacing most of the bladder concerning for bladder malignancy. Her CBC showed a white count of 4.1 hemoglobin 12.5 platelets 270,000 with a normal differential. GFR 69 normal liver functions. Total protein 7.8 albumin 4.8 Patient reports her pain has resolved, will be discharged home for a Cystoscopy tomorrow () with Dr. Westbrook at 0850 in Urology suite. Patient will be discharged with Cipro. Operations or Procedures Exam: CT CT AB PEL WO CON-NO ORAL OR IV History: pelvic pain Comparison Study: None Technique: Multidetector spiral CT of the abdomen and pelvis was performed from lung bases to pubic symphysis. Imaging was performed without IV contrast. Axial, coronal and sagittal multiplanar reformats were obtained from the axial data set by the technologist. Radiation dose : Abdomen/Pelvis: CTDIvol 9 mGy, DLP 455.17 mGy*cm. Findings: Evaluation of solid organs is limited due to lack of intravenous contrast use. Lung Bases: No acute or significant lung base finding. Normal heart size. No pleural or pericardial effusion. Liver: The liver is normal in size. No focal lesions. Gallbladder and biliary Tree: Unremarkable Spleen: Unremarkable Pancreas: The pancreas is grossly normal in appearance. Adrenal Glands: Unremarkable Kidneys: Moderate to severe left hydronephrosis and hydroureter. No right hydronephrosis. Bladder: Soft tissue density filling most of the bladder measuring up to approximately 81 mm concerning for a bladder malignancy. Bowel: The stomach is grossly normal in appearance. Small bowel and colon are normal in caliber and distribution. The appendix is not visualized; however, no secondary findings of acute appendicitis identified. Ascites: Absent Lymphadenopathy: No mesenteric, retroperitoneal or periportal lymphadenopathy. Abdominal wall and Mesentery: Unremarkable. Vasculature: The visualized abdominal aorta is normal in size and caliber. Evaluation of abdominal and pelvic vessels is limited due to lack of intravenous contrast. Pelvic Organs: Unremarkable Musculoskeletal: Dextroscoliosis with associated multilevel degenerative disease. Grade 1 anterolisthesis of L4 on L5. IMPRESSION: 1. Moderate to severe left hydronephrosis. Large soft tissue mass replacing most of the bladder concerning for bladder malignancy. Recommend urology evaluation. Lesion could be further evaluated with CT urogram and/or MRI of the pelvis with contrast. Clinical correlation and continued follow-up is recommended. Radiation optimization: All CT scans at this facility use at least one of these dose optimization techniques: Automated exposure control mA and/or kV adjustment per patient size (includes targeted exams where dose is matched to clinical indication) or iterative reconstruction. HS:Y Condition at Discharge: Stable Final Diagnosis/Problems List Moderate to severe left hydronephrosis Bladder Mass Discharge Disposition: Home Discharge Instruct/Medications Diet: Regular Activity: Light activity Follow Up/Referral: Dr. Josh Westbrook Urology tomorrow 8:50AM. Medications: Cipro Discharge Statement: "Patient was advised to return to the ER or call 911 if any headaches, dizziness, shortness of breath, chest pain, abdominal pain, bleeding, fevers, or worsening of medical condition. Patient was counseled about treatment plan, medications, possible side effects, patientverbalized understanding. All questions were answered to the best of my ability. This discharge took greater then 30 minutes in planning, reviewing documentation, counseling the patient, and discussing with other team members." ASSESSMENT ASSESSMENT Assessment Date of Service: Jun 29, 2024 Billing Provider: DANIEL HOLM MD Common Visit Codes: [id number] DISCH DAY >30min DANIEL HOLM MD Jun 29, 2024 10:57
--- NOTE | 2024-06-29 12:11 | DVHINCON2 ---
Date of service: Jun 29, 2024 Referring Physician Hospitalist Reason for Consultation Bladder mass and left hydronephrosis History of Present Illness Consultation requested for Bladder mass with left hydronephrosis 69 years old female who is interviewed through the healthcare interpreter. Has a history of hypertension and hyperlipidemia Gives a history of having lost 30 pounds of weight in the last 2 years. Has been having hematuria since May 27, 2024. Left flank pain over the last 4 days which has been getting worse and she was at the urgent care and with hematuria and left flank pain she was sent to the ER. She recently has been treated with antibiotics also. No nausea vomiting. No fevers night sweats no bruising. A CT of the abdomen pelvis without contrast showed moderate to severe left hydronephrosis. Large soft tissue mass replacing most of the bladder concerning for bladder malignancy. Her CBC showed a white count of 4.1 hemoglobin 12.5 platelets 270,000 with a normal differential. GFR 69 normal liver functions. Total protein 7.8 albumin 4.8 Past Medical History Hypertension Hyperlipidemia Right knee surgery Past Surgical History Knee surgery Family History: FHx: gallstones G8 MOTHER, Allergies: Coded Allergies: NO KNOWN ALLERGIES (Unverified , 06/27/24) Home Meds Active Scripts Ciprofloxacin Hydrochloride (Ciprofloxacin HCl) 500 Mg Tab, 500 MG PO BID for 7 Days, #14 TAB Prov:DANIEL HOLM MD 06/29/24 Reported Medications Cetirizine Hcl (Zyrtec Allergy) 10 Mg Cap, 10 MG PO DAILY for SEASONAL ALLERGIES, CAP 06/28/24 Enalapril Maleate (Enalapril Maleate) 20 Mg Tab, 1 TAB PO DAILY 06/28/24 Meloxicam (Meloxicam) 15 Mg Tab, 1 TAB PO DAILY 06/28/24 Rosuvastatin Calcium (Rosuvastatin Calcium) 10 Mg Tab, 1 TAB PO 06/28/24 Review of Systems as per HPI Vital Signs Vital Signs Date Time Temp Pulse Resp B/P (MAP) Pulse Ox O2 Delivery O2 Flow Rate FiO2 06/29/24 05:00 97.4 78 17 98/63 (75) 100 97.4 06/28/24 10:48 Room Air* 0 21 Physical Exam Exam Vital Signs Vital Signs Date Time Temp Pulse Resp B/P (MAP) Pulse Ox O2 Delivery O2 Flow Rate FiO2 06/28/24 08:51 112/63 12/10/24 07:58 98.3 67 18 95 98.3 06/27/24 21:54 Room Air* 0 21 Physical Exam GENERAL: The patient is a moderately built and nourished ,in no distress, alert and oriented. HEAD AND NECK: Unremarkable. No neck nodes or masses. Conjunctivae: Unremarkable for any mucosal hemorrhage or inflammation. Thyroid is nonpalpable. Throat is unremarkable. SPINE: No deformities or tenderness. CHEST: Chest wall, no tenderness. LUNGS: Clear. CARDIOVASCULAR: Regular sinus rhythm. No murmurs or gallops. ABDOMEN: No organomegaly, or ascites. Bowel sounds present. She is tender in the left flank/left upper quadrant of the abdomen EXTREMITIES: No clubbing, edema or cyanosis. Peripheral pulses palpable. No calf tenderness. LYMPHATICS: No significant lymphadenopathy. NEUROLOGIC: No focal neurological deficits. SKIN: Unremarkable for any petechiae, purpura, or ecchymosis. Psych: No abnormalities Available data reviewed Labs/Diagnostic Data Labs Test 06/28/24 04:12 06/27/24 18:36 06/27/24 15:47 Range/Units White Blood Count 4.1 L 4.4-10.8 10^3/uL Red Blood Count 4.14 4.0-5.20 10^6/uL Hemoglobin 12.5 12.2-16.2 g/dL Hematocrit 37.5 36.0-46.0 % Mean Corpuscular Volume 90.5 80.0-100.0 fL Mean Corpuscular Hemoglobin 30.2 28.0-32.0 pg Mean Corpuscular Hemoglobin Concent 33.4 32.0-36.0 g/dL Red Cell Distribution Width 13.8 11.8-14.3 % Platelet Count 270 140-450 10^3/uL Mean Platelet Volume 7.0 6.9-10.8 fL Neutrophils (%) (Auto) 44.8 37.0-80.0 % Lymphocytes (%) (Auto) 40.9 10.0-50.0 % Monocytes (%) (Auto) 11.4 0.0-12.0 % Eosinophils (%) (Auto) 2.7 0.0-7.0 % Basophils (%) (Auto) 0.2 0.0-2.0 % Neutrophils # (Auto) 1.8 1.6-8.6 10 ^3/uL Lymphocytes # (Auto) 1.7 0.4-5.4 10 ^3/uL Monocytes # (Auto) 0.5 0-1.3 10 ^3/uL Eosinophils # (Auto) 0.1 0-0.8 10 ^3/uL Basophils # (Auto) 0 0-0.2 10 ^3/uL Nucleated Red Blood Cells 0.0 % Sodium Level 141 136-145 mmol/L Potassium Level 3.5 3.5-5.1 mmol/L Chloride Level 108 H 98-107 mmol/L Carbon Dioxide Level 27 20-31 mmol/L Anion Gap 6 5-15 Blood Urea Nitrogen 27 H 9-23 mg/dL Creatinine 0.90 0.550-1.02 mg/dL Glomerular Filtration Rate Calc 69 >90 mL/min BUN/Creatinine Ratio 30.0 H 10.0-20.0 Serum Glucose 89 74-106 mg/dL Calcium Level 10.1 8.7-10.4 mg/dL Lactic Acid Level 0.8 0.4-2.0 mmol/L Total Bilirubin 0.4 0.2-1.0 mg/dL Aspartate Amino Transferase (AST) 20 13-40 U/L Alanine Aminotransferase (ALT) 16 7-40 U/L Alkaline Phosphatase 72 46-116 U/L Total Protein 7.8 5.7-8.2 g/dL Albumin 4.8 3.2-4.8 g/dL Urine Color Light-brown Yellow Urine Clarity Turbid H Clear Urine pH 6.0 5.0-9.0 Urine Specific [place] 1.016 1.001-1.035 Urine Protein 2+ H Negative Urine Ketones Negative Negative Urine Blood 3+ H Negative /uL Urine Nitrite Negative Negative Urine Bilirubin Negative Negative Urine Urobilinogen Normal Negative mg/dL Urine Leukocyte Esterase Negative Negative /uL Urine RBC 1494 0 - 4 /hpf Urine WBC 189 0 - 5 /hpf Urine WBC Clumps Present None Seen /hpf Urine Squamous Epithelial Cells None seen <5 /hpf Urine Bacteria Few H None Seen /hpf Urine Mucus Few None Seen Urine Glucose Normal Normal mg/dL Microbiology Date/Time Source Procedure Growth Status 06/27/24 15:47 Voided Urine Urine Culture - Preliminary Resulted Assessment Gross hematuria Bladder mass, large Left hydronephrosis Weight loss Plan/Recommendation Patient is likely to have advanced bladder cancer CT Urogram Possible left PNT Cystoscopy with possible TURBT for pathology diagnosis TBA Plan discussed with: Patient, Other CAITIE PEÑALOZA MD Jun 29, 2024 12:11
[2024-06-29] MEDS: IOHEXOL 300 MG/ML 100ML BOTTLE IJ ONE ×2 (13:24→13:37)
[2024-06-29] MEDS ORDERED: cefTRIAXone 1GM/50ML D5W 50 ML IV ONE (13:30)
--- NOTE | 2024-06-29 14:46 | DVH ---
Exam: CT CT AB PEL WITH IV CON ONLY History: left hydronephrosis and large bladder mass Comparison Study: None available at time of dictation. Technique: Multidetector spiral CT of the abdomen and pelvis was performed from lung bases to pubic s ymphysis. Initial imaging was done without IV contrast, followed by post contrast images of the abdo men and pelvis. Intravenous contrast was administered during this examination. Multi phase imaging w as obtained. Axial, coronal and sagittal multiplanar reformats were performed by the technologist on a separate workstation. CONTRAST: Type of contrast: Omni 300 Contrast injected: 100 ml Radiation Dose : CT Dose: CTDI volume is 9.44 mGy. Dose-length product is 796.72 mGy*cm Findings: Lung Bases: No acute or significant lung base finding. Normal heart size. No pleural or pericardial effusion. Liver: The liver is normal in size. No focal lesions. Normal hepatic vascular enhancement. Gallbladder and biliary Tree: Unremarkable Spleen: Unremarkable Pancreas: The pancreas is normal in appearance without focal lesions or abnormal enhancement. Adrenal Glands: Unremarkable Kidneys: Duplicated left renal collecting system. Moderate to severe left hydronephrosis. Subcentimet er right renal cyst. Bladder: Multiple irregular masses throughout the bladder largest is on the posterior and right later al wall measuring up to 75 mm. Bowel: The stomach is grossly normal in appearance. Small bowel and colon are normal in caliber and d istribution. The appendix is not visualized; however, no secondary findings of acute appendicitis id entified. Ascites: Absent Lymphadenopathy: No mesenteric, retroperitoneal or periportal lymphadenopathy. Abdominal wall and Mesentery: Unremarkable. Vasculature: The visualized abdominal aorta is normal in size and caliber. Abdominal and pelvic vess els demonstrate normal enhancement. Pelvic Organs: Unremarkable Musculoskeletal: Dextroscoliosis with associated multilevel degenerative disease. IMPRESSION: 1. Multiple irregular bladder masses concerning for malignancy. Urology evaluation with cystoscopy a nd biopsy is recommended. Duplicated left renal collecting system associated with moderate to severe left hydronephrosis. Tiny right renal cyst. Radiation optimization: All CT scans at this facility use at least one of these dose optimization marcin hniques: Automated exposure control mA and/or kV adjustment per patient size (includes targeted exams where dose is matched to clinical indication) or iterative reconstruction. HS:Y
[2024-06-29] MEDS: ERTAPENEM SOD INJ 1 GM in SODIUM CHL 0.9% 50 ML IV ONE (15:33)
[2024-06-29 20:46] LABS: INR 1.09 (0.9-1.15); Prothrombin Time 11.5 sec (9.3-11.8)
[2024-06-30] VITALS (8 sets, daily range): BP systolic 85–104; BP diastolic 46–73; PULSE 60–86; RESP 14–20; TEMP 97.5–98.6; O2SAT 96–100
[2024-06-30] MEDS: ERTAPENEM SOD INJ 1 GM in SODIUM CHL 0.9% 50 ML IV SCH (10:00)
--- NOTE | 2024-06-30 16:52 | DVHPN2 ---
Subjective Seen and examined at bedside, DC Cancelled. Has ESBL in the Urine. for TURB tomorrow. Changes from previous H/P or p: No Changes Objective Vitals Vital Signs Date Time Temp Pulse Resp B/P (MAP) Pulse Ox O2 Delivery O2 Flow Rate FiO2 06/30/24 13:00 98.6 86 14 99/51 (67) 100 98.6 06/29/24 20:00 Room Air* 0 21 Intake/Output Intake and Output 06/30/24 07:00 Intake Total 1378 ml Output Total 700 ml Balance 678 ml Intake Oral 1328 ml IV Total 50 ml Output Urine Total 700 ml # Voids 1 General Appearance: Alert, Oriented X3 Lungs: Clear to auscultation Abdomen: Normal bowel sounds, Soft, No tenderness Medications Current Medications Medications Dose Ordered Sig/Bruna Route Start Time Stop Time Status Last Admin Dose Admin Atorvastatin Calcium 10 mg HS PO 06/27/24 22:00 06/29/24 21:18 10 MG Enalapril Maleate 10 mg DAILY PO 06/28/24 10:00 06/30/24 09:43 10 MG Acetaminophen/ Hydrocodone Bitart 1 tab Q4HP PRN PO 06/27/24 19:15 06/29/24 19:46 1 TAB Ondansetron HCl 4 mg Q4HP PRN IV 06/27/24 19:15 Acetaminophen 650 mg Q6HP PRN PO 06/27/24 19:15 Ertapenem 1 gm/ Sodium Chloride 50 ml @ 100 mls/hr DAILY IV 06/30/24 10:00 06/30/24 10:00 100 MLS/HR Laboratory Results Laboratory Tests 06/28/24 04:12 Coagulation Test 06/29/24 19:47 Prothrombin Time 11.5 sec (9.3-11.8) Prothrombin Time INR 1.09 (0.9-1.15) Urinalysis Test 06/27/24 15:47 Urine Color Light-brown (Yellow) Urine Clarity Turbid (Clear) H Urine pH 6.0 (5.0-9.0) Urine Specific [place] 1.016 (1.001-1.035) Urine Protein 2+ (Negative) H Urine Ketones Negative (Negative) Urine Blood 3+ /uL (Negative) H Urine Nitrite Negative (Negative) Urine Bilirubin Negative (Negative) Urine Urobilinogen Normal mg/dL (Negative) Urine Leukocyte Esterase Negative /uL (Negative) Urine RBC 1494 /hpf (0 - 4) Urine WBC 189 /hpf (0 - 5) Urine WBC Clumps Present /hpf (None Seen) Urine Squamous Epithelial Cells None seen /hpf (<5) Urine Bacteria Few /hpf (None Seen) H Urine Mucus Few (None Seen) Urine Glucose Normal mg/dL (Normal) Microbiology Microbiology Date/Time Source Procedure Growth Status 06/27/24 15:47 Voided Urine Urine Culture - Final Escherichia coli - ESBL Complete Assessment/Plan Assessment/Plan Moderate to severe left hydronephrosis- Nephrotostomy tube Bladder Mass- TURB tomorrow ESBL UTI- Invanz Plan discussed with: Patient My Orders Orders - DANIEL HOLM MD Procedure Category Date Status Time Basic Metabolic Panel LAB 07/01/24 Verified 04:00 Complete Blood Count LAB 07/01/24 Verified 04:00 Date of Service: Jun 30, 2024 Billing Provider: DANIEL HOLM MD Common Visit Codes: [id number] INP/OBS CARE(HIGH) DANIEL HOLM MD Jun 30, 2024 16:52
[2024-07-01] VITALS (10 sets, daily range): BP systolic 100–119; BP diastolic 60–78; PULSE 58–78; RESP 9–19; TEMP 97.2–98.4; O2SAT 96–100
--- NOTE | 2024-07-01 06:18 | DVH ---
CHEST RADIOGRAPH Indication: pre op pain Technique: Single frontal view of the chest was obtained Comparison: None FINDINGS: Lines and Tubes: None Lungs: No focal consolidation. Pleura: No effusion. No pneumothorax. Cardiomediastinal contours: Unremarkable Bones: No acute osseous abnormality. IMPRESSION: No acute cardiopulmonary disease.
[2024-07-01 07:13] LABS: Basophils # (auto) 0 10 ^3/uL (0-0.2); Basophils % (auto) 0.4 % (0.0-2.0); Eosinophils # (auto) 0.1 10 ^3/uL (0-0.8); Eosinophils % (auto) 1.7 % (0.0-7.0); Hematocrit 35.8 % (36.0-46.0); Hemoglobin 12.3 g/dL (12.2-16.2); Lymphocytes # (auto) 1.2 10 ^3/uL (0.4-5.4); Lymphocytes % (auto) 32.8 % (10.0-50.0); Mean Corpuscular Hemoglobin 30.7 pg (28.0-32.0); Mean Corpuscular Hgb Conc. 34.3 g/dL (32.0-36.0); Mean Corpuscular Volume 89.5 fL (80.0-100.0); Monocytes # (auto) 0.4 10 ^3/uL (0-1.3); Monocytes % (auto) 11.5 % (0.0-12.0); Neutrophils % (auto) 53.6 % (37.0-80.0); Nucleated Red Blood Cells % 0.1 %; Platelet Count (auto) 264 10^3/uL (140-450); Red Cell Distribution Width 13.8 % (11.8-14.3); White Blood Cell 3.7 10^3/uL (4.4-10.8)
[2024-07-01 07:14] LABS: Calcium 9.9 mg/dL (8.7-10.4); Potassium 3.8 mmol/L (3.5-5.1); Sodium 142 mmol/L (136-145)
[2024-07-01 07:15] LABS: Anion Gap 9 (5-15); Carbon Dioxide 25 mmol/L (20-31)
[2024-07-01 07:20] LABS: BUN/Creatinine Ratio 24.7 (10.0-20.0); Blood Urea Nitrogen 21 mg/dL (9-23); Glucose 94 mg/dL (74-106)
[2024-07-01 07:21] LABS: Chloride 108 mmol/L (98-107)
--- NOTE | 2024-07-01 13:12 | DVHPN2 ---
Subjective Feels okay Reviewed: Care Plan, H&P, Labs, Medications, Previous Orders, Radiology, Other (Staff Radiologist) Changes from previous H/P or p: No Changes Objective Vitals Vital Signs Date Time Temp Pulse Resp B/P (MAP) Pulse Ox O2 Delivery O2 Flow Rate FiO2 07/01/24 11:10 112/70 07/01/24 09:07 97.9 78 19 98 97.9 07/01/24 08:00 Room Air* 0 21 Intake/Output Intake and Output 07/01/24 07:00 Intake Total 966 ml Balance 966 ml Intake Oral 916 ml IV Total 50 ml # Voids 9 General Appearance: Alert, Oriented X3 HEENT: Atraumatic Lungs: Clear to auscultation Abdomen: Normal bowel sounds, Soft Medications Current Medications Medications Dose Ordered Sig/Bruna Route Start Time Stop Time Status Last Admin Dose Admin Atorvastatin Calcium 10 mg HS PO 06/27/24 22:00 06/30/24 21:03 10 MG Enalapril Maleate 10 mg DAILY PO 06/28/24 10:00 07/01/24 11:10 10 MG Acetaminophen/ Hydrocodone Bitart 1 tab Q4HP PRN PO 06/27/24 19:15 06/29/24 19:46 1 TAB Ondansetron HCl 4 mg Q4HP PRN IV 06/27/24 19:15 Acetaminophen 650 mg Q6HP PRN PO 06/27/24 19:15 Ertapenem 1 gm/ Sodium Chloride 50 ml @ 100 mls/hr DAILY IV 06/30/24 10:00 07/01/24 11:09 100 MLS/HR Laboratory Results Laboratory Tests 07/01/24 06:41 Chemistry Test 07/01/24 06:41 Calcium Level 9.9 mg/dL (8.7-10.4) Urinalysis Test 06/27/24 15:47 Urine Color Light-brown (Yellow) Urine Clarity Turbid (Clear) H Urine pH 6.0 (5.0-9.0) Urine Specific [place] 1.016 (1.001-1.035) Urine Protein 2+ (Negative) H Urine Ketones Negative (Negative) Urine Blood 3+ /uL (Negative) H Urine Nitrite Negative (Negative) Urine Bilirubin Negative (Negative) Urine Urobilinogen Normal mg/dL (Negative) Urine Leukocyte Esterase Negative /uL (Negative) Urine RBC 1494 /hpf (0 - 4) Urine WBC 189 /hpf (0 - 5) Urine WBC Clumps Present /hpf (None Seen) Urine Squamous Epithelial Cells None seen /hpf (<5) Urine Bacteria Few /hpf (None Seen) H Urine Mucus Few (None Seen) Urine Glucose Normal mg/dL (Normal) Microbiology Microbiology Date/Time Source Procedure Growth Status 06/27/24 15:47 Voided Urine Urine Culture - Final Escherichia coli - ESBL Complete Assessment/Plan Assessment/Plan Bladder mass Cystitis with ESBL Moderate to severe left hydronephrosis Plan: Going for TURBT today Plan discussed with: Patient Date of Service: Jul 01, 2024 Billing Provider: JOHANN DAUGHERTY MD Common Visit Codes: [id number] INP/OBS CARE(HIGH) JOHANN DAUGHERTY MD Jul 01, 2024 13:12
[2024-07-01] MEDS: CIPROFLOXACIN 400MG/200ML 200 ML IV ONE (14:58)
[2024-07-01] MEDS ORDERED: ePHEDrine SULFATE 50 MG/ML AMP ONE (16:12)
[2024-07-01] MEDS ORDERED: MIDAZOLAM HCL 2MG/2ML 2ml VIAL (1mg/ml) ONE (16:12)
[2024-07-01] MEDS ORDERED: fentaNYL CITRATE 100 MCG/2 ML VL ONE (16:12)
[2024-07-01] MEDS ORDERED: LIDOCAINE 2% (LOCAL ANESTH.) PF 5ml SDV ONE (16:12)
[2024-07-01] MEDS ORDERED: PROPOFOL 10 MG/ML 20 ML IV ONE (16:12)
[2024-07-01] MEDS ORDERED: MEPERIDINE HCL (50 MG/ML) 1 ML VIAL ONE (16:12)
[2024-07-01] MEDS ORDERED: KETOROLAC TROMETH 30 MG/ML 1ML VIAL ONE (16:12)
[2024-07-01] MEDS ORDERED: ONDANSETRON HCL 4 MG/2 ML VIAL ONE (16:12)
[2024-07-01] MEDS ORDERED: GLYCOPYRROLATE 0.2 MG/ML 1ML VIAL ONE (16:12)
[2024-07-01] MEDS ORDERED: DexAMETHasone SOD PHOS 10MG/1ML VIAL INJ ONE (16:12)
[2024-07-01] MEDS ORDERED: HYDROmorphone HCL 2 MG/ML VL/or syr IV PRN (18:15)
--- NOTE | 2024-07-01 18:49 | POSTOP ---
Post-Operative Note Post-Operative Note Preop Diagnosis Large bladder tumor mass Left hydronephrosis Postop Diagnosis: Moderate to severe left hydronephrosis Bladder Mass Operation performed Extensive trans urethral resection of the bladder tumor Specimen Large bladder tumor segments from the left posterior wall, left trigone, and left bladder neck Anesthesia: General Anesthesiologist: Johnny Surgeon Caitie Peñaloza Complications & Mgmt Patient is bladder tumor masses extremely extensive and is unresectable completely. Partial resections of the left posterior wall, trigone and bladder neck were performed. Additional Remarks Will await for the pathology results Date 07/01/24 Time 18:46 CAITIE PEÑALOZA MD Jul 01, 2024 18:49
[2024-07-02] VITALS (7 sets, daily range): BP systolic 101–113; BP diastolic 56–70; PULSE 54–73; RESP 16–20; TEMP 97.4–98.7; O2SAT 96–97
[2024-07-02] MEDS: ONDANSETRON HCL 4 MG/2 ML VIAL IV ONE (07:40)
--- NOTE | 2024-07-02 07:40 | DVHPN2 ---
Progress Note - Dictate Date Seen: Jul 02, 2024 Medical Necessity Reason Pt with a Central, PICC or Fol: Yes The following are medically ne: [place] Catheter Medical Necessity Reason PODay 1. Status post partial resection of large extensive bladder cancer Left hydronephrosis Subjective Patient is alert and oriented in tolerating the catheter with CBI vital signs Vital Sign Date Time Temp Pulse Resp B/P (MAP) Pulse Ox O2 Delivery O2 Flow Rate FiO2 07/02/24 05:00 97.6 60 18 101/56 (71) 97 97.6 07/01/24 20:00 Room Air* 0 21 Total Intake and Output 07/01/24 07/01/24 07/02/24 15:00 23:00 07:00 Intake Total 50 ml Balance 50 ml medications Current Medications Medications Dose Ordered Sig/Bruna Route Start Time Stop Time Status Last Admin Dose Admin Atorvastatin Calcium 10 mg HS PO 06/27/24 22:00 07/01/24 22:06 10 MG Enalapril Maleate 10 mg DAILY PO 06/28/24 10:00 07/01/24 11:10 10 MG Acetaminophen/ Hydrocodone Bitart 1 tab Q4HP PRN PO 06/27/24 19:15 06/29/24 19:46 1 TAB Ondansetron HCl 4 mg Q4HP PRN IV 06/27/24 19:15 Acetaminophen 650 mg Q6HP PRN PO 06/27/24 19:15 Ertapenem 1 gm/ Sodium Chloride 50 ml @ 100 mls/hr DAILY IV 06/30/24 10:00 07/01/24 11:09 100 MLS/HR objective Despite continuous bladder irrigation, there is extensive hematuria noted. laboratory and microbiology Laboratory Tests 07/01/24 06:41 Test 07/01/24 06:41 Range/Units Serum Glucose 94 74-106 mg/dL Problem List Bladder cancer, staging to be determined Assessment/Plan Gross hematuria Bladder mass, large- status post partial transurethral resection Left hydronephrosis Weight loss Continuous bladder irrigation Re-evaluate left hydronephrosis with kidney ultrasound, and if persistent will need left percutaneous nephrostomy tube Consult Interventional Radiology for embolization of bilateral inferior vesical artery to stop bleeding from the tumors in the lower part of the bladder. Patient may consider a radical cystectomy at higher level of care Plan discussed with: Patient, Other CAITIE PEÑALOZA MD Jul 02, 2024 07:40
--- NOTE | 2024-07-02 08:01 | DVH ---
US KIDNEY HISTORY: Left hydronephrosis COMPARISON: CT 06/29/2024 TECHNIQUE: Transverse and longitudinal grayscale and color Doppler images were obtained of the kidney s and bladder. FINDINGS: The right kidney measures 9.0 cm in length. The left kidney measures 10.7 cm in length. The kidneys appear normal in echotexture. No sonographically evident cyst or mass. There is moderate to severe l eft hydronephrosis. Medina catheter is present within the urinary bladder . Thickened wall relates to intraluminal masses as seen on prior CT. IMPRESSION: 1. Moderate to severe left hydronephrosis as seen on prior CT.
[2024-07-02 09:59] LABS: Basophils # (auto) 0 10 ^3/uL (0-0.2); Basophils % (auto) 0.2 % (0.0-2.0); Eosinophils # (auto) 0 10 ^3/uL (0-0.8); Hematocrit 38.5 % (36.0-46.0); Hemoglobin 12.8 g/dL (12.2-16.2); Lymphocytes # (auto) 0.8 10 ^3/uL (0.4-5.4); Lymphocytes % (auto) 11.9 % (10.0-50.0); Mean Corpuscular Hemoglobin 30.3 pg (28.0-32.0); Mean Corpuscular Hgb Conc. 33.4 g/dL (32.0-36.0); Mean Corpuscular Volume 90.7 fL (80.0-100.0); Monocytes # (auto) 0.3 10 ^3/uL (0-1.3); Monocytes % (auto) 5.1 % (0.0-12.0); Neutrophils # (auto) 5.4 10 ^3/uL (1.6-8.6); Neutrophils % (auto) 82.8 % (37.0-80.0); Platelet Count (auto) 285 10^3/uL (140-450); Red Blood Cells 4.24 10^6/uL (4.0-5.20); Red Cell Distribution Width 13.9 % (11.8-14.3); White Blood Cell 6.6 10^3/uL (4.4-10.8)
--- NOTE | 2024-07-02 14:10 | DVHPN2 ---
Subjective Status post partial bladder tumor resection yesterday. Ultrasound still showing [id number] hydronephrosis. Reviewed: Care Plan, H&P, Labs, Medications, Previous Orders, Radiology, Other (Instructional Technology Coach) Changes from previous H/P or p: No Changes Objective Vitals Vital Signs Date Time Temp Pulse Resp B/P (MAP) Pulse Ox O2 Delivery O2 Flow Rate FiO2 07/02/24 12:59 97.4 70 18 108/67 (81) 96 97.4 07/02/24 07:30 Room Air* 0 21 Intake/Output Intake and Output 07/02/24 07:00 Intake Total 50 ml Balance 50 ml Intake Oral 0 ml IV Total 50 ml # Voids 3 General Appearance: Alert, Oriented X3 HEENT: Atraumatic Lungs: Clear to auscultation Abdomen: Normal bowel sounds, Soft Medications Current Medications Medications Dose Ordered Sig/Bruna Route Start Time Stop Time Status Last Admin Dose Admin Atorvastatin Calcium 10 mg HS PO 06/27/24 22:00 07/01/24 22:06 10 MG Enalapril Maleate 10 mg DAILY PO 06/28/24 10:00 07/01/24 11:10 10 MG Acetaminophen/ Hydrocodone Bitart 1 tab Q4HP PRN PO 06/27/24 19:15 06/29/24 19:46 1 TAB Ondansetron HCl 4 mg Q4HP PRN IV 06/27/24 19:15 Acetaminophen 650 mg Q6HP PRN PO 06/27/24 19:15 Ertapenem 1 gm/ Sodium Chloride 50 ml @ 100 mls/hr DAILY IV 06/30/24 10:00 07/02/24 11:10 100 MLS/HR Laboratory Results Laboratory Tests 07/01/24 06:41 07/02/24 09:39 Urinalysis Test 06/27/24 15:47 Urine Color Light-brown (Yellow) Urine Clarity Turbid (Clear) H Urine pH 6.0 (5.0-9.0) Urine Specific [place] 1.016 (1.001-1.035) Urine Protein 2+ (Negative) H Urine Ketones Negative (Negative) Urine Blood 3+ /uL (Negative) H Urine Nitrite Negative (Negative) Urine Bilirubin Negative (Negative) Urine Urobilinogen Normal mg/dL (Negative) Urine Leukocyte Esterase Negative /uL (Negative) Urine RBC 1494 /hpf (0 - 4) Urine WBC 189 /hpf (0 - 5) Urine WBC Clumps Present /hpf (None Seen) Urine Squamous Epithelial Cells None seen /hpf (<5) Urine Bacteria Few /hpf (None Seen) H Urine Mucus Few (None Seen) Urine Glucose Normal mg/dL (Normal) Microbiology Microbiology Date/Time Source Procedure Growth Status 06/27/24 15:47 Voided Urine Urine Culture - Final Escherichia coli - ESBL Complete Assessment/Plan Assessment/Plan Bladder mass status post partial resection done yesterday by Dr. Westbrook [id number] left hydronephrosis Cystitis with ESBL Plan: Continue bladder irrigation. We will need left percutaneous nephrostomy as per Urology. Further plan per orders Plan discussed with: Patient My Orders Orders - JOHANN DAUGHERTY MD Procedure Category Date Status Time Dietary NOTICE 07/02/24 Transmitted Recommendations 12:11 Date of Service: Jul 02, 2024 Billing Provider: JOHANN DAUGHERTY MD Common Visit Codes: [id number] INP/OBS CARE(HIGH) JOHANN DAUGHERTY MD Jul 02, 2024 14:10
[2024-07-03] VITALS (7 sets, daily range): BP systolic 80–109; BP diastolic 42–65; PULSE 62–72; RESP 18–20; TEMP 98–99.2; O2SAT 94–97
[2024-07-03 06:47] LABS: Basophils # (auto) 0 10 ^3/uL (0-0.2); Basophils % (auto) 0.2 % (0.0-2.0); Eosinophils # (auto) 0 10 ^3/uL (0-0.8); Eosinophils % (auto) 0.5 % (0.0-7.0); Hematocrit 31.6 % (36.0-46.0); Hemoglobin 10.8 g/dL (12.2-16.2); Lymphocytes # (auto) 1.4 10 ^3/uL (0.4-5.4); Lymphocytes % (auto) 25.5 % (10.0-50.0); Mean Corpuscular Hemoglobin 30.8 pg (28.0-32.0); Mean Corpuscular Hgb Conc. 34.1 g/dL (32.0-36.0); Mean Corpuscular Volume 90.4 fL (80.0-100.0); Monocytes # (auto) 0.6 10 ^3/uL (0-1.3); Monocytes % (auto) 11.2 % (0.0-12.0); Neutrophils # (auto) 3.5 10 ^3/uL (1.6-8.6); Neutrophils % (auto) 62.6 % (37.0-80.0); Nucleated Red Blood Cells % 0.1 %; Platelet Count (auto) 223 10^3/uL (140-450); White Blood Cell 5.6 10^3/uL (4.4-10.8)
[2024-07-03 06:57] LABS: Alanine Aminotransferase 14 U/L (7-40); Albumin 3.3 g/dL (3.2-4.8); Alkaline Phosphatase 50 U/L (46-116); Anion Gap 8 (5-15); Aspartate Aminotransferase 21 U/L (13-40); BUN/Creatinine Ratio 23.7 (10.0-20.0); Calcium 9.1 mg/dL (8.7-10.4); Carbon Dioxide 24 mmol/L (20-31); Glucose 100 mg/dL (74-106); Potassium 4.2 mmol/L (3.5-5.1); Sodium 140 mmol/L (136-145)
[2024-07-03 06:58] LABS: Bilirubin, Total 0.3 mg/dL (0.2-1.0)
[2024-07-03 07:10] LABS: Blood Urea Nitrogen 27 mg/dL (9-23); Chloride 108 mmol/L (98-107); Total Protein 5.4 g/dL (5.7-8.2)
[2024-07-03 10:59] LABS: Hematocrit 32.8 % (36.0-46.0); Hemoglobin 11.1 g/dL (12.2-16.2)
[2024-07-03] MEDS: SODIUM CHLORIDE 0.9% 1,000 ML IV ONE (10:59)
[2024-07-03] MEDS: SODIUM CHLORIDE 0.9% 1,000 ML IV SCH (12:25)
--- NOTE | 2024-07-03 14:43 | DVHPN2 ---
Subjective Low blood pressure this morning with some dizziness. 07/02/2024: Status post partial bladder tumor resection yesterday. Ultrasound still showing [id number] hydronephrosis. Reviewed: Care Plan, H&P, Labs, Medications, Previous Orders, Radiology, Other (Recruitment Director) Changes from previous H/P or p: No Changes Objective Vitals Vital Signs Date Time Temp Pulse Resp B/P (MAP) Pulse Ox O2 Delivery O2 Flow Rate FiO2 07/03/24 09:00 98.0 70 20 93/47 (62) 97 98.0 07/03/24 07:30 Room Air* 0 21 Intake/Output Intake and Output 07/03/24 07:00 Intake Total 1550 ml Output Total 94559 ml Balance -06681 ml Intake Oral 1500 ml IV Total 50 ml Output Urine Total 02419 ml # Bowel Movements 1 General Appearance: Alert, Oriented X3 HEENT: Atraumatic Lungs: Clear to auscultation Abdomen: Normal bowel sounds, Soft Medications Current Medications Medications Dose Ordered Sig/Bruna Route Start Time Stop Time Status Last Admin Dose Admin Atorvastatin Calcium 10 mg HS PO 06/27/24 22:00 07/02/24 21:29 10 MG Acetaminophen/ Hydrocodone Bitart 1 tab Q4HP PRN PO 06/27/24 19:15 06/29/24 19:46 1 TAB Ondansetron HCl 4 mg Q4HP PRN IV 06/27/24 19:15 Acetaminophen 650 mg Q6HP PRN PO 06/27/24 19:15 Ertapenem 1 gm/ Sodium Chloride 50 ml @ 100 mls/hr DAILY IV 06/30/24 10:00 07/03/24 10:06 100 MLS/HR Sodium Chloride 1,000 ml @ 100 mls/hr Q10H IV 07/03/24 09:30 07/03/24 12:25 100 MLS/HR Laboratory Results Laboratory Tests 07/03/24 06:05 07/03/24 10:39 Chemistry Test 07/03/24 06:05 Albumin 3.3 g/dL (3.2-4.8) Calcium Level 9.1 mg/dL (8.7-10.4) Total Protein 5.4 g/dL (5.7-8.2) L LFT Test 07/03/24 06:05 Alanine Aminotransferase (ALT) 14 U/L (7-40) Alkaline Phosphatase 50 U/L (46-116) Aspartate Amino Transferase (AST) 21 U/L (13-40) Total Bilirubin 0.3 mg/dL (0.2-1.0) Urinalysis Test 06/27/24 15:47 Urine Color Light-brown (Yellow) Urine Clarity Turbid (Clear) H Urine pH 6.0 (5.0-9.0) Urine Specific [place] 1.016 (1.001-1.035) Urine Protein 2+ (Negative) H Urine Ketones Negative (Negative) Urine Blood 3+ /uL (Negative) H Urine Nitrite Negative (Negative) Urine Bilirubin Negative (Negative) Urine Urobilinogen Normal mg/dL (Negative) Urine Leukocyte Esterase Negative /uL (Negative) Urine RBC 1494 /hpf (0 - 4) Urine WBC 189 /hpf (0 - 5) Urine WBC Clumps Present /hpf (None Seen) Urine Squamous Epithelial Cells None seen /hpf (<5) Urine Bacteria Few /hpf (None Seen) H Urine Mucus Few (None Seen) Urine Glucose Normal mg/dL (Normal) Microbiology Microbiology Date/Time Source Procedure Growth Status 06/27/24 15:47 Voided Urine Urine Culture - Final Escherichia coli - ESBL Complete Assessment/Plan Assessment/Plan Mild hypotension with mild dizziness this morning/better now after normal saline Bladder mass status post partial TURBT Cystitis with ESBL Moderate to severe left hydronephrosis Plan: IV normal saline bolus and drip. Continue current plan of care. Recheck labs Plan discussed with: Patient, Other (Nursing) My Orders Orders - JOHANN DAUGHERTY MD Procedure Category Date Status Time Sodium Chloride 0.9% PHA 07/03/24 In Process 09:30 Complete Blood Count LAB 07/04/24 Verified 06:00 Comprehensive LAB 07/04/24 Verified Metabolic Panel 06:00 Hemoglobin & LAB 07/03/24 Logged Hematocrit 15:21 Hemoglobin & LAB 07/03/24 Logged Hematocrit 21:21 Date of Service: Jul 03, 2024 Billing Provider: JOHANN DAUGHERTY MD Common Visit Codes: [id number] INP/OBS CARE(HIGH) JOHANN DAUGHERTY MD Jul 03, 2024 14:43
[2024-07-03 16:01] LABS: Hematocrit 32.9 % (36.0-46.0); Hemoglobin 10.8 g/dL (12.2-16.2)
--- NOTE | 2024-07-03 20:35 | DVHPN2 ---
Progress Note - Dictate Date Seen: Jul 03, 2024 Medical Necessity Reason Pt with a Central, PICC or Fol: Yes The following are medically ne: Leblanc Catheter Reason for leblanc catheter: Bladder Retention/Obstruc Medical Necessity Reason Continuous bladder irrigation is in progress Subjective Patient is alert and oriented in tolerating the catheter with CBI vital signs Vital Sign Date Time Temp Pulse Resp B/P (MAP) Pulse Ox O2 Delivery O2 Flow Rate FiO2 07/03/24 17:00 99.2 67 18 99/61 (74) 97 99.2 07/03/24 07:30 Room Air* 0 21 Total Intake and Output 07/02/24 07/02/24 07/03/24 15:00 23:00 07:00 Intake Total 50 ml 800 ml 700 ml Output Total 14460 ml 62613 ml 66023 ml Balance -30053 ml -29457 ml -64003 ml medications Current Medications Medications Dose Ordered Sig/Bruna Route Start Time Stop Time Status Last Admin Dose Admin Atorvastatin Calcium 10 mg HS PO 06/27/24 22:00 07/02/24 21:29 10 MG Acetaminophen/ Hydrocodone Bitart 1 tab Q4HP PRN PO 06/27/24 19:15 06/29/24 19:46 1 TAB Ondansetron HCl 4 mg Q4HP PRN IV 06/27/24 19:15 Acetaminophen 650 mg Q6HP PRN PO 06/27/24 19:15 Ertapenem 1 gm/ Sodium Chloride 50 ml @ 100 mls/hr DAILY IV 06/30/24 10:00 07/03/24 10:06 100 MLS/HR Sodium Chloride 1,000 ml @ 100 mls/hr Q10H IV 07/03/24 09:30 07/03/24 12:25 100 MLS/HR objective PATIENT: JET SALEH MACCT: [id number] UNIT: [id number] : 1955 LOC: CENTRAL ROOM / BED: [facility] / A AGE / SEX: 69 / F ADM STATUS: ADM IN SERVICE 9 ORDERING PHYSICIAN: CAITIE PEÑALOZA MD PROCEDURE(s): KIDUS - KIDNEY REASON: Left hydronephrosis ORDER NUMBER(s): [id number], ACCESSION NUMBER(s): [id number] KIDNEY HISTORY: Left hydronephrosis COMPARISON: CT 06/29/2024 TECHNIQUE: Transverse and longitudinal grayscale and color Doppler images were obtained of the kidneys and bladder. FINDINGS: The right kidney measures 9.0 cm in length. The left kidney measures 10.7 cm in length. The kidneys appear normal in echotexture. No sonographically evident cyst or mass. There is moderate to severe left hydronephrosis. Leblanc catheter is present within the urinary bladder . Thickened wall relates to intraluminal masses as seen on prior CT. IMPRESSION: 1. Moderate to severe left hydronephrosis as seen on prior CT. ATED BY: SACHIN GUEVARA MD DICTATED DATE/TIME: 07/02/24 0800 laboratory and microbiology Laboratory Tests 07/03/24 15:46 07/03/24 06:05 Test 07/03/24 06:05 Range/Units Serum Glucose 100 74-106 mg/dL Problem List Bladder cancer, staging to be determined Assessment/Plan Gross hematuria- resolving Bladder mass, large- status post partial transurethral resection. More tumors remain in the bladder Left hydronephrosis-persistent Weight loss Continuous bladder irrigation-titration to off Patient will need left percutaneous nephrostomy tube Consider possible embolization of bilateral inferior vesical artery to stop bleeding from the tumors in the lower part of the bladder. Patient may consider a radical cystectomy at higher level of care Dietary Evaluation Review Recommendations by RD: Protein Supplementation Comments: 1. Initiate Ensure High Protein bid. 2. Continue current plan of care. Expected Outcomes/Goals: Patient labs and appetite to improve F/u in 3-5 days Plan discussed with: Patient, Other CAITIE PEÑALOZA MD Jul 03, 2024 20:35
[2024-07-03 21:16] LABS: Hematocrit 33.2 % (36.0-46.0); Hemoglobin 10.9 g/dL (12.2-16.2)
[2024-07-04] VITALS (8 sets, daily range): BP systolic 96–115; BP diastolic 63–72; PULSE 71–83; RESP 15–18; TEMP 98.1–99.1; O2SAT 95–99
[2024-07-04 05:51] LABS: Basophils # (auto) 0 10 ^3/uL (0-0.2); Basophils % (auto) 0.3 % (0.0-2.0); Eosinophils # (auto) 0.1 10 ^3/uL (0-0.8); Eosinophils % (auto) 2.1 % (0.0-7.0); Hematocrit 30.5 % (36.0-46.0); Hemoglobin 10.3 g/dL (12.2-16.2); Lymphocytes # (auto) 1.3 10 ^3/uL (0.4-5.4); Lymphocytes % (auto) 26.2 % (10.0-50.0); Mean Corpuscular Hemoglobin 30.5 pg (28.0-32.0); Mean Corpuscular Hgb Conc. 33.6 g/dL (32.0-36.0); Mean Corpuscular Volume 90.8 fL (80.0-100.0); Monocytes # (auto) 0.6 10 ^3/uL (0-1.3); Monocytes % (auto) 11.8 % (0.0-12.0); Neutrophils # (auto) 2.9 10 ^3/uL (1.6-8.6); Neutrophils % (auto) 59.6 % (37.0-80.0); Nucleated Red Blood Cells % 0.1 %; Platelet Count (auto) 197 10^3/uL (140-450); Red Blood Cells 3.36 10^6/uL (4.0-5.20); Red Cell Distribution Width 14.1 % (11.8-14.3); White Blood Cell 4.9 10^3/uL (4.4-10.8)
[2024-07-04 06:09] LABS: Alanine Aminotransferase 15 U/L (7-40); Alkaline Phosphatase 56 U/L (46-116); Anion Gap 7 (5-15); Aspartate Aminotransferase 17 U/L (13-40); Calcium 8.7 mg/dL (8.7-10.4); Carbon Dioxide 25 mmol/L (20-31); Glucose 92 mg/dL (74-106); Potassium 4.4 mmol/L (3.5-5.1); Sodium 144 mmol/L (136-145)
[2024-07-04 06:23] LABS: Albumin 3.1 g/dL (3.2-4.8); Bilirubin, Total 0.2 mg/dL (0.2-1.0); Blood Urea Nitrogen 23 mg/dL (9-23); Chloride 112 mmol/L (98-107); Total Protein 5.2 g/dL (5.7-8.2)
--- NOTE | 2024-07-04 15:10 | DVHPN2 ---
Subjective Seen and examined at bedside, s/p Cystoscopy. For Nephrostomy tube tomorrow. Reviewed: Care Plan, H&P, Labs, Medications, Previous Orders, Radiology, Other (Ammonia Box Tender) Changes from previous H/P or p: No Changes Objective Vitals Vital Signs Date Time Temp Pulse Resp B/P (MAP) Pulse Ox O2 Delivery O2 Flow Rate FiO2 07/04/24 12:42 99.1 77 15 112/68 (83) 97 99.1 07/04/24 08:00 Room Air* 0 21 Intake/Output Intake and Output 07/04/24 07:00 Intake Total 3510 ml Output Total 70364 ml Balance -59142 ml Intake Oral 500 ml IV Total 3010 ml Output Urine Total 29498 ml General Appearance: Alert, Oriented X3 HEENT: Atraumatic Lungs: Clear to auscultation Abdomen: Normal bowel sounds, Soft Medications Current Medications Medications Dose Ordered Sig/Bruna Route Start Time Stop Time Status Last Admin Dose Admin Atorvastatin Calcium 10 mg HS PO 06/27/24 22:00 07/03/24 21:01 10 MG Acetaminophen/ Hydrocodone Bitart 1 tab Q4HP PRN PO 06/27/24 19:15 06/29/24 19:46 1 TAB Ondansetron HCl 4 mg Q4HP PRN IV 06/27/24 19:15 Acetaminophen 650 mg Q6HP PRN PO 06/27/24 19:15 Ertapenem 1 gm/ Sodium Chloride 50 ml @ 100 mls/hr DAILY IV 06/30/24 10:00 07/04/24 09:55 100 MLS/HR Sodium Chloride 1,000 ml @ 100 mls/hr Q10H IV 07/03/24 09:30 07/04/24 06:41 100 MLS/HR Laboratory Results Laboratory Tests 07/04/24 04:53 Chemistry Test 07/04/24 04:53 Albumin 3.1 g/dL (3.2-4.8) L Calcium Level 8.7 mg/dL (8.7-10.4) Total Protein 5.2 g/dL (5.7-8.2) L LFT Test 07/04/24 04:53 Alanine Aminotransferase (ALT) 15 U/L (7-40) Alkaline Phosphatase 56 U/L (46-116) Aspartate Amino Transferase (AST) 17 U/L (13-40) Total Bilirubin 0.2 mg/dL (0.2-1.0) Urinalysis Test 06/27/24 15:47 Urine Color Light-brown (Yellow) Urine Clarity Turbid (Clear) H Urine pH 6.0 (5.0-9.0) Urine Specific [place] 1.016 (1.001-1.035) Urine Protein 2+ (Negative) H Urine Ketones Negative (Negative) Urine Blood 3+ /uL (Negative) H Urine Nitrite Negative (Negative) Urine Bilirubin Negative (Negative) Urine Urobilinogen Normal mg/dL (Negative) Urine Leukocyte Esterase Negative /uL (Negative) Urine RBC 1494 /hpf (0 - 4) Urine WBC 189 /hpf (0 - 5) Urine WBC Clumps Present /hpf (None Seen) Urine Squamous Epithelial Cells None seen /hpf (<5) Urine Bacteria Few /hpf (None Seen) H Urine Mucus Few (None Seen) Urine Glucose Normal mg/dL (Normal) Microbiology Microbiology Date/Time Source Procedure Growth Status 06/27/24 15:47 Voided Urine Urine Culture - Final Escherichia coli - ESBL Complete Assessment/Plan Assessment/Plan Moderate to severe left hydronephrosis- Nephrotostomy tube Bladder Mass- s/p TURB. with CBI ESBL UTI- Invanz Plan discussed with: Patient Date of Service: Jul 04, 2024 Billing Provider: DANIEL HOLM MD Common Visit Codes: [id number] INP/OBS CARE(HIGH) DANIEL HOLM MD Jul 04, 2024 15:10
[2024-07-05] VITALS (20 sets, daily range): BP systolic 107–136; BP diastolic 66–86; PULSE 60–84; RESP 12–18; TEMP 97.8–99.6; O2SAT 95–100
[2024-07-05] MEDS: IODIXANOL 320MG/ML 100ML BTL IV ONE ×3 (08:21→14:07)
[2024-07-05] MEDS: fentaNYL CITRATE 100 MCG/2 ML VL ONE ×2 (09:18→12:57)
[2024-07-05] MEDS: MIDAZOLAM HCL 2MG/2ML 2ml VIAL (1mg/ml) ONE ×2 (09:18→12:57)
[2024-07-05] MEDS: cefTRIAXone 1GM/50ML D5W 50 ML IV ONE (10:01)
--- NOTE | 2024-07-05 10:38 | DVH ---
XY PERCUTANEOUS NEPHROSTOMY, HISTORY: NEPHRO TUBE due to obstructive hydronephrosis. PROCEDURE: Informed consent was obtained. The patient was placed on the fluoroscopic table in a prone position and IV sedation administered. 1 gram of Ceftriaxone was given. The left flank was prepped w ith chlorhexidine which was allowed to dry and draped in the usual sterile fashion. Time out was perf ormed and the soft tissues infiltrated with 1% lidocaine local anesthetic. Utilizing ultrasound elizabeth nce, a 21 gauge Accu Stick needle was advanced from a posterolateral approach into an upper pole shaheen x, and a small amount of contrast was injected under fluoroscopy to confirm positioning. Over a mandr il wire, exchange was made to a non-vascular access set, through which was advanced an 0.035 wire. Fo llowing serial dilation, an 8.5 [place] multipurpose nephrostomy catheter was placed with tip pigtaile d within the renal pelvis. Position was confirmed with antegrade nephrostogram. The catheter was secu red in place and connected to gravity drainage. A sterile dressing was applied. No immediate complica tion was identified. DAP 221 mGy FLUOROSCOPY TIME: 1.9 minutes. CONTRAST USED: 15 mL. SEDATION: Dr. Manuel River was personally responsible for the administration of moderate sedation during the procedure performed, including the use of an independent trained observer who had no other duties during the procedure. The drugs utilized were IV fentanyl and versed (see nursing log for details). The total time of supervision by the attending physician was approximately 30 minutes. FINDINGS: Moderately dilated left renal collecting system involving the calyces/renal pelvis/ureter t o the level of the mid ureter. New 8.5 [place] nephrostomy tube via a posterior upper pole calyceal a ccess, with loop coiled within the renal pelvis. IMPRESSION: Left hydronephrosis due to bladder mass, status post successful placement of 8.5 [place] left percutan eous nephrostomy catheter via subcostal upper pole approach. PLAN: Routine catheter care exchanges in 3 months.
--- NOTE | 2024-07-05 10:38 | DVH ---
XY PERCUTANEOUS NEPHROSTOMY, HISTORY: NEPHRO TUBE due to obstructive hydronephrosis. PROCEDURE: Informed consent was obtained. The patient was placed on the fluoroscopic table in a prone position and IV sedation administered. 1 gram of Ceftriaxone was given. The left flank was prepped w ith chlorhexidine which was allowed to dry and draped in the usual sterile fashion. Time out was perf ormed and the soft tissues infiltrated with 1% lidocaine local anesthetic. Utilizing ultrasound elizabeth nce, a 21 gauge Accu Stick needle was advanced from a posterolateral approach into an upper pole shaheen x, and a small amount of contrast was injected under fluoroscopy to confirm positioning. Over a mandr il wire, exchange was made to a non-vascular access set, through which was advanced an 0.035 wire. Fo llowing serial dilation, an 8.5 Ethiopian multipurpose nephrostomy catheter was placed with tip pigtaile d within the renal pelvis. Position was confirmed with antegrade nephrostogram. The catheter was secu red in place and connected to gravity drainage. A sterile dressing was applied. No immediate complica tion was identified. DAP 221 mGy FLUOROSCOPY TIME: 1.9 minutes. CONTRAST USED: 15 mL. SEDATION: Dr. Manuel River was personally responsible for the administration of moderate sedation during the procedure performed, including the use of an independent trained observer who had no other duties during the procedure. The drugs utilized were IV fentanyl and versed (see nursing log for details). The total time of supervision by the attending physician was approximately 30 minutes. FINDINGS: Moderately dilated left renal collecting system involving the calyces/renal pelvis/ureter t o the level of the mid ureter. New 8.5 Ethiopian nephrostomy tube via a posterior upper pole calyceal a ccess, with loop coiled within the renal pelvis. IMPRESSION: Left hydronephrosis due to bladder mass, status post successful placement of 8.5 Ethiopian left percutan eous nephrostomy catheter via subcostal upper pole approach. PLAN: Routine catheter care exchanges in 3 months.
[2024-07-05] MEDS ORDERED: KETAMINE 50mg/ML 1ml syringe IM ONE (12:50)
[2024-07-05] MEDS: LIDOCAINE 2%HCL (LOCAL ANESTH.) INJ 20ML MDV ONE (12:57)
[2024-07-05] MEDS: IOHEXOL 350 MG/ML 100ML IJ ONE (14:01)
--- NOTE | 2024-07-05 14:17 | DVHDS2 ---
Discharge Summary Date of Admission Jun 27, 2024 at 19:08 Date of Discharge: Jul 06, 2024 Admitting Diagnosis ESBU UTI Labs/Diagnostic Data: Laboratory Results Test 07/04/24 04:53 06/29/24 19:47 06/27/24 18:36 06/27/24 15:47 White Blood Count 4.9 10^3/uL (4.4-10.8) Red Blood Count 3.36 10^6/uL (4.0-5.20) Hemoglobin 10.3 g/dL (12.2-16.2) Hematocrit 30.5 % (36.0-46.0) Mean Corpuscular Volume 90.8 fL (80.0-100.0) Mean Corpuscular Hemoglobin 30.5 pg (28.0-32.0) Mean Corpuscular Hemoglobin Concent 33.6 g/dL (32.0-36.0) Red Cell Distribution Width 14.1 % (11.8-14.3) Platelet Count 197 10^3/uL (140-450) Mean Platelet Volume 6.9 fL (6.9-10.8) Neutrophils (%) (Auto) 59.6 % (37.0-80.0) Lymphocytes (%) (Auto) 26.2 % (10.0-50.0) Monocytes (%) (Auto) 11.8 % (0.0-12.0) Eosinophils (%) (Auto) 2.1 % (0.0-7.0) Basophils (%) (Auto) 0.3 % (0.0-2.0) Neutrophils # (Auto) 2.9 10 ^3/uL (1.6-8.6) Lymphocytes # (Auto) 1.3 10 ^3/uL (0.4-5.4) Monocytes # (Auto) 0.6 10 ^3/uL (0-1.3) Eosinophils # (Auto) 0.1 10 ^3/uL (0-0.8) Basophils # (Auto) 0 10 ^3/uL (0-0.2) Nucleated Red Blood Cells 0.1 % Sodium Level 144 mmol/L (136-145) Potassium Level 4.4 mmol/L (3.5-5.1) Chloride Level 112 mmol/L (98-107) Carbon Dioxide Level 25 mmol/L (20-31) Anion Gap 7 (5-15) Blood Urea Nitrogen 23 mg/dL (9-23) Creatinine 1.00 mg/dL (0.550-1.02) Glomerular Filtration Rate Calc 61 mL/min (>90) BUN/Creatinine Ratio 23.0 (10.0-20.0) Serum Glucose 92 mg/dL (74-106) Calcium Level 8.7 mg/dL (8.7-10.4) Total Bilirubin 0.2 mg/dL (0.2-1.0) Aspartate Amino Transferase (AST) 17 U/L (13-40) Alanine Aminotransferase (ALT) 15 U/L (7-40) Alkaline Phosphatase 56 U/L (46-116) Total Protein 5.2 g/dL (5.7-8.2) Albumin 3.1 g/dL (3.2-4.8) Prothrombin Time 11.5 sec (9.3-11.8) Prothrombin Time INR 1.09 (0.9-1.15) Lactic Acid Level 0.8 mmol/L (0.4-2.0) Urine Color Light-brown (Yellow) Urine Clarity Turbid (Clear) Urine pH 6.0 (5.0-9.0) Urine Specific [place] 1.016 (1.001-1.035) Urine Protein 2+ (Negative) Urine Ketones Negative (Negative) Urine Blood 3+ /uL (Negative) Urine Nitrite Negative (Negative) Urine Bilirubin Negative (Negative) Urine Urobilinogen Normal mg/dL (Negative) Urine Leukocyte Esterase Negative /uL (Negative) Urine RBC 1494 /hpf (0 - 4) Urine WBC 189 /hpf (0 - 5) Urine WBC Clumps Present /hpf (None Seen) Urine Squamous Epithelial Cells None seen /hpf (<5) Urine Bacteria Few /hpf (None Seen) Urine Mucus Few (None Seen) Urine Glucose Normal mg/dL (Normal) Other Laboratory Tests 07/04/24 04:53 Brief Hx & Hospital Course: 69 years old female who is interviewed through the certified court/medical interpreter. Has a history of hypertension and hyperlipidemia Gives a history of having lost 30 pounds of weight in the last 2 years. Has been having hematuria since May 27, 2024. Left flank pain over the last 4 days which has been getting worse and she was at the urgent care and with hematuria and left flank pain she was sent to the ER. She recently has been treated with antibiotics also. No nausea vomiting. No fevers night sweats no bruising. A CT of the abdomen pelvis without contrast showed moderate to severe left hydronephrosis. Large soft tissue mass replacing most of the bladder concerning for bladder malignancy. Patient underwent Cystoscopy, see operative below. Patient also had a Nephrostomy tube placed. Patient will be discharged home with Invanz for ESBL UTI for 7 more days. Operations or Procedures XY PERCUTANEOUS NEPHROSTOMY, HISTORY: NEPHRO TUBE due to obstructive hydronephrosis. PROCEDURE: Informed consent was obtained. The patient was placed on the fluoroscopic table in a prone position and IV sedation administered. 1 gram of Ceftriaxone was given. The left flank was prepped with chlorhexidine which was allowed to dry and draped in the usual sterile fashion. Time out was performed and the soft tissues infiltrated with 1% lidocaine local anesthetic. Utilizing ultrasound guidance, a 21 gauge Accu Stick needle was advanced from a posterolateral approach into an upper pole calyx, and a small amount of contrast was injected under fluoroscopy to confirm positioning. Over a mandril wire, exchange was made to a non-vascular access set, through which was advanced an 0.035 wire. Following serial dilation, an 8.5 [place] Verdean multipurpose nephrostomy catheter was placed with tip pigtailed within the renal pelvis. Position was confirmed with antegrade nephrostogram. The catheter was secured in place and connected to gravity drainage. A sterile dressing was applied. No immediate complication was identified. DAP 221 mGy FLUOROSCOPY TIME: 1.9 minutes. CONTRAST USED: 15 mL. SEDATION: Dr. Manuel River was personally responsible for the administration of moderate sedation during the procedure performed, including the use of an independent trained observer who had no other duties during the procedure. The drugs utilized were IV fentanyl and versed (see nursing log for details). The total time of supervision by the attending physician was approximately 30 minutes. FINDINGS: Moderately dilated left renal collecting system involving the calyces/renal pelvis/ureter to the level of the mid ureter. New 8.5 [place] Verdean nephrostomy tube via a posterior upper pole calyceal access, with loop coiled within the renal pelvis. IMPRESSION: Left hydronephrosis due to bladder mass, status post successful placement of 8.5 [place]an left percutaneous nephrostomy catheter via subcostal upper pole approach. PLAN: Routine catheter care exchanges in 3 months. Post-Operative Note Preop Diagnosis Large bladder tumor mass Left hydronephrosis Postop Diagnosis: Moderate to severe left hydronephrosis Bladder Mass Operation performed Extensive trans urethral resection of the bladder tumor Specimen Large bladder tumor segments from the left posterior wall, left trigone, and left bladder neck Anesthesia: General Anesthesiologist: Johnny Surgeon Josh Westbrook Complications & Mgmt Patient is bladder tumor masses extremely extensive and is unresectable completely. Partial resections of the left posterior wall, trigone and bladder neck were performed. Additional Remarks Will await for the pathology results Condition at Discharge: Stable Final Diagnosis/Problems List Moderate to severe left hydronephrosis Bladder Mass ESBU UTI Discharge Disposition: Home Discharge Instruct/Medications Diet: Regular Activity: Light activity Follow Up/Referral: Dr. Josh Westbrook Urology in 1 week for Pathology Results Medications: Invanz 1gm for 7 days Discharge Statement: "Patient was advised to return to the ER or call 911 if any headaches, dizziness, shortness of breath, chest pain, abdominal pain, bleeding, fevers, or worsening of medical condition. Patient was counseled about treatment plan, medications, possible side effects, patientverbalized understanding. All questions were answered to the best of my ability. This discharge took greater then 30 minutes in planning, reviewing documentation, counseling the patient, and discussing with other team members." ASSESSMENT ASSESSMENT Assessment Moderate to severe left hydronephrosisBladder Mass Date of Service: Jul 05, 2024 Billing Provider: DANIEL HOLM MD Common Visit Codes: 09970-XFZ/OBS DISCH DAY >30min DANIEL HOLM MD Jul 05, 2024 14:17
--- NOTE | 2024-07-05 20:04 | DVH ---
XY ARTER/VENOUS EMBOLIZATION HISTORY: Symptomatic hematuria due to bladder mass on CBI here for possible embolization of the infer ior vesicle artery. PROCEDURE: The patient was placed supine on the interventional table. The right groin was prepped wi th chlorhexidine which was allowed to dry and draped in the usual sterile fashion. Time out was perfo rmed. The skin and the soft tissues were infiltrated with Xylocaine. Using micropuncture technique an d real-time ultrasound guidance, the right common femoral artery was accessed and a 5 [place] vascular sheath placed; an image documenting patency was recorded to PACS. Over a guide wire, 5 [place] Rim ca theter was formed over the aortic bifurcation, and the left internal iliac artery selected. Arteriogr am were obtained in AP and oblique projections. The Rim catheter was exchanged for a [address] A 2.4 [place] micro- catheter and Transcend wire were advanced into the anterior division of the left internal iliac artery. No tumor blush was able to be visualized. Catheter and sheath were then r emoved and hemostasis achieved with Angioseal device deployment. No immediate complication was identi fied. DAP 1448 FLUOROSCOPY TIME: 8.4 minutes. CONTRAST USED: 50 mL. SEDATION: Dr. Manuel River was personally responsible for the administration of moderate sedation during the procedure performed, including the use of an independent trained observer who had no other duties during the procedure. The drugs utilized were IV fentanyl and versed (see nursing log for details). The total time of supervision by the attending physician was approximately 75 minutes. FINDINGS: Unremarkable pelvic arterial vasculature from the left internal iliac artery. No visualizat ion of a tumor blush from the bladder. The vesical artery was not easily identified, which would be e xpected from a prominent arterial feeding artery. No embolization was performed. IMPRESSION: No visualization of a tumor blush from the bladder. The vesical artery was not easily identified, whi ch would be expected from a prominent arterial feeding artery. No embolization was performed. PLAN: Right lower extremity straight for 2 hours.
[2024-07-06 01:00] VITALS: BP 99/64; PULSE 72; RESP 18; TEMP 98.3; O2SAT 97
[2024-07-06 05:00] VITALS: BP 97/66; PULSE 72; RESP 18; TEMP 98.3; O2SAT 97
[2024-07-06 07:30] VITALS: PULSE 71; RESP 16; O2SAT 100
[2024-07-06 08:44] VITALS: BP 116/78; PULSE 71; RESP 16; TEMP 97.8; O2SAT 100
[2024-07-06 13:15] VITALS: BP 127/78; PULSE 85; RESP 18; TEMP 99.1; O2SAT 97
--- NOTE | 2024-07-06 13:20 | DVHPN2 ---
Subjective Seen and examined at bedside, has nephrostomy tube. For DC Home. 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) Changes from previous H/P or p: No Changes Objective Vitals Vital Signs Date Time Temp Pulse Resp B/P (MAP) Pulse Ox O2 Delivery O2 Flow Rate FiO2 07/06/24 13:15 99.1 85 18 127/78 (94) 97 99.1 07/06/24 07:30 Room Air* 0 21 Intake/Output Intake and Output 07/06/24 07:00 Intake Total 680 ml Output Total 6100 ml Balance -5420 ml Intake Oral 580 ml IV Total 100 ml Output Urine Total 4750 ml Drainage Total 450 ml Other 900 ml General Appearance: Alert, Oriented X3 HEENT: Atraumatic Lungs: Clear to auscultation Abdomen: Normal bowel sounds, Soft Medications Current Medications Medications Dose Ordered Sig/Bruna Route Start Time Stop Time Status Last Admin Dose Admin Atorvastatin Calcium 10 mg HS PO 06/27/24 22:00 07/05/24 21:26 10 MG Acetaminophen/ Hydrocodone Bitart 1 tab Q4HP PRN PO 06/27/24 19:15 07/05/24 20:02 1 TAB Ondansetron HCl 4 mg Q4HP PRN IV 06/27/24 19:15 Acetaminophen 650 mg Q6HP PRN PO 06/27/24 19:15 Ertapenem 1 gm/ Sodium Chloride 50 ml @ 100 mls/hr DAILY IV 06/30/24 10:00 07/06/24 09:04 100 MLS/HR Sodium Chloride 1,000 ml @ 100 mls/hr Q10H IV 07/03/24 09:30 07/06/24 05:35 100 MLS/HR Laboratory Results Laboratory Tests 07/04/24 04:53 Urinalysis Test 06/27/24 15:47 Urine Color Light-brown (Yellow) Urine Clarity Turbid (Clear) H Urine pH 6.0 (5.0-9.0) Urine Specific [place] 1.016 (1.001-1.035) Urine Protein 2+ (Negative) H Urine Ketones Negative (Negative) Urine Blood 3+ /uL (Negative) H Urine Nitrite Negative (Negative) Urine Bilirubin Negative (Negative) Urine Urobilinogen Normal mg/dL (Negative) Urine Leukocyte Esterase Negative /uL (Negative) Urine RBC 1494 /hpf (0 - 4) Urine WBC 189 /hpf (0 - 5) Urine WBC Clumps Present /hpf (None Seen) Urine Squamous Epithelial Cells None seen /hpf (<5) Urine Bacteria Few /hpf (None Seen) H Urine Mucus Few (None Seen) Urine Glucose Normal mg/dL (Normal) Microbiology Microbiology Date/Time Source Procedure Growth Status 06/27/24 15:47 Voided Urine Urine Culture - Final Escherichia coli - ESBL Complete Assessment/Plan Assessment/Plan Moderate to severe left hydronephrosis- Nephrotostomy tube. See Dr. Westbrook in 1 week for Biopsy results. Bladder Mass- s/p TURB. 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
--- NOTE | 2024-07-12 13:21 | ECG ---
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
== END 2024-07-06 16:29 | disposition home or self-care (01) | DRG 669 ==
LOC: ER 15:23 → OVERFLOW 19:08 → EAST 06-28 22:00 → CENTRAL 06-29 21:21
PROVIDERS: ADMIT Nurse Practitioner; ATTEND Internal Medicine
PROC: 05HC33Z Insertion of Infusion Device into Left Basilic Vein, Percutaneous Approach (ICD-10-PCS; 2024-06-29)
PROC: B54NZZA Ultrasonography of Left Upper Extremity Veins, Guidance (ICD-10-PCS; 2024-06-29)
PROC: 0TBC8ZZ Excision of Bladder Neck, Via Natural or Artificial Opening Endoscopic (ICD-10-PCS; principal; 2024-07-01 16:30)
PROC: 0T9430Z Drainage of Left Kidney Pelvis with Drainage Device, Percutaneous Approach (ICD-10-PCS; 2024-07-05)
PROC: B41GYZZ Fluoroscopy of Left Lower Extremity Arteries using Other Contrast (ICD-10-PCS; 2024-07-05)
DX: N13.6 Pyonephrosis (principal); C68.0 Malignant neoplasm of urethra; Z16.12 Extended spectrum beta lactamase (ESBL) resistance; E78.5 Hyperlipidemia, unspecified; I10 Essential (primary) hypertension; R31.0 Gross hematuria; N32.9 Bladder disorder, unspecified; Z79.899 Other long term (current) drug therapy
CPT/HCPCS: 36224; 36415; 37243; 50432; 71045; 74176; 74177; 74425; 75710; 76775; 76942; 80048; 80053; 81001; 83605; 85014; 85018; 85025; 85610; 87086; 87088; 87186; 96365; 97163; 99152; 99153; C1894; G0378; J1100; J1335; J1885; J2003; J2250; J2405; J2704; Q9967

== ENCOUNTER 2024-10-16 10:48 | Emergency (ER) | payer OTHER ==
[~2024-10-16] VITALS: Ht 134.6 cm; Wt 60.8 kg
[~2024-10-16 10:48] MED LIST: CETI10CA PO; ENAL1TAB48 PO; ROSU10TA64 PO
--- NOTE | 2024-10-16 11:19 | ED.PDOC ---
History of Present Illness HPI Comments 69 year old female presents to the ED with chief complaint of left nephrostomy check. Patient reports that she had a nephrostomy placed in June on her left side due to history of bladder cancer. Patient relays that she has not had her nephrostomy bag changed out since she had it placed and wishes to have it all checked and cleaned. Patient notes she is currently on hemotherapy before having surgery performed on the cancer. Patient states that she has been experiencing left sided flank pain since the nephrostomy was placed. Patient denies any dysuria, hematuria, fever, chills, or abdominal pain. Chief Complaint: Wound Check Time Seen by MD: 11:14 Primary Care Provider: NONE Reviewed Notes: Nurses Notes, Medications, Allergies Allergies: Coded Allergies: NO KNOWN ALLERGIES (Unverified , 06/27/24) Home Meds Reported Medications Cetirizine Hcl (Zyrtec Allergy) 10 Mg Cap, 10 MG PO DAILY for SEASONAL ALLERGIES, CAP 06/28/24 Enalapril Maleate (Enalapril Maleate) 20 Mg Tab, 1 TAB PO DAILY 06/28/24 Rosuvastatin Calcium (Rosuvastatin Calcium) 10 Mg Tab, 1 TAB PO 06/28/24 Information Source: Patient Mode of Arrival: Ambulatory Severity: Moderate Timing: Months Duration: Since onset Prehospital treatment: None Past Medical History PAST MEDICAL HISTORY: Denies Surgical History: Denies all surgeries SIPHONER History: No Pertinent SIPHONER History Family History Family History: Reviewed,noncontributory to illness Social History Smoker: Non-Smoker Alcohol: Denies ETOH Use Drugs: Denies Drug Use Lives In: Home Constitutional: denies: chills, diaphoresis, fatigue, fever, malaise, sweats, weakness, others EENTM: denies: blurred vision, double vision, ear bleeding, ear discharge, ear drainage, ear pain, ear ringing, eye pain, eye redness, hearing loss, mouth pain, mouth swelling, nasal discharge, nose bleeding, nose congestion, nose pain, photophobia, tearing, throat pain, throat swelling, voice changes, others Respiratory: denies: cough, hemoptysis, orthopnea, SOB at rest, shortness of breath, SOB with excertion, stridor, wheezing, others Cardiovascular: denies: chest pain, dizzy spells, diaphoresis, Dyspnea on e xertion, edema, irregular heart beat, left arm pain, lightheadedness, palpitations, PND, syncope, others Gastrointestinal: denies: abdomen distended, abdominal pain, blood streaked bowels, constipated, diarrhea, dysphagia, difficulty swallowing, hematemesis, melena, nausea, poor appetite, poor fluid intake, rectal bleeding, rectal pain, vomiting, others Genitourinary: reports: flank pain (Left flank pain), others (Left nep hrostomy); denies: abnormal vagina bleeding, burning, dyspareunia, dysuria, frequency, hematuria, incontinence, pain, , vagina discharge, urgency Neurological: denies: dizziness, fainting, headache, left sided numbness, left sided weakness, numbness, paresthesia, pre-existing deficit, right sided numbness, right sided weakness, seizure, speech problems, tingling, tremors, weakness, others Musculoskeletal: denies: back pain, gout, joint pain, joint swelling, muscle pain, muscle stiffness, neck pain, others Integumetry: denies: bruises, change in color, change in hair/nails, dryness, laceration, lesions, lumps, rash, wounds, others Allergic/Immunocompromised: denies: Difficulty Healing, Frequent Infections, Hives, Itching, others Hematologic/Lymphatic: denies: anemia, blood clots, easy bleeding, easy bruising, swollen glands, others Endocrine: denies: excessive hunger, excessive sweating, excessive thirst, excessive urination, flushing, intolerance to cold, intolerance to heat, unexplained weight gain, unexplained weight loss, others Psychiatric: denies: anxiety, bipolar disorder, depression, hopeless, panic disorder, schizophrenia, sleepless, suicidal, others All Other Systems: Reviewed and Negative Physical Exam General Appearance: Moderate Distress, Normal HEENT: Normal ENT Inspection, PERRL/EOMI Neck: Full Range of Motion, Non-Tender, Normal, Normal Inspection Respiratory: Chest Non-Tender, Lungs Clear, No Accessory Muscle Use, No Respiratory Distress, Normal Breath Sounds Cardiovascular: No Edema, No JVD, No Murmur, No Gallop, Normal Peripheral Pulses, Regular Rate/Rhythm Breast Exam: Deferred Gastrointestinal: No Organomegaly, Non Tender, No Pulsatile Mass, Normal Bowel Sounds, Soft Genitalia: Deferred Pelvic: Deferred Rectal: Deferred Extremities: No calf tenderness, Normal capillary refill, Normal inspection, Normal range of motion, Non-tender, No pedal edema Musculoskeletal : Apperance: Normal Neurologic: Alert, 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 Was a procedure done?: No Differential Dx Considerations may include: Anemia Electrolyte imbalance X-Ray, Labs, Meds, VS Vital Signs Date Time Temp Pulse Resp B/P (MAP) Pulse Ox O2 Delivery O2 Flow Rate FiO2 10/16/24 10:59 97.2 92 18 116/63 (80) 99 97.2 Patient alert. Nephrostomy catheter in place. Vitals stable. Answering questions. Ambulating. No sign of any infection. Catheter in place. Stitch in place. KUB does not show any acute process. Examination pristine. Reviewed her history. Explained to the patient. Was told to follow up with her primary care physician. Was told to come back if there is any problem. Time of 1ST Reevaluation: 12:14 Reevaluation 1ST: Improved Patient Education/Counseling: Diagnosis, Treatment Family Education/Counseling: No Family Present Additional Information Previous visit documents reviewed: 06/27/24 for bladder mass The following tests were ordered, and results were reviewed by me: ADIEL AVITIA Additional Information was gathered from interviewing the following independent historians: None I reviewed and agreed with the following test results read by other providers: ADIEL AVITIA I discussed treatment and results with medical personnel and: Patient Comprehensive systems review obtained and negative except for what is stated in the HPI. Departure 1 Departure Time of Disposition: 12:23 Impression: Primary Impression: Difficulty managing nephrostomy care Disposition: 01 HOME / SELF CARE / HOMELESS Condition: Good Discharged With: Self Critical Care Note Critical Care Time?: No Stability Stability form required: No Heart Score Heart Score: Heart Score Response (Comments) Value History N/A 0 EKG N/A 0 Age N/A 0 Risk Factors N/A 0 Troponin N/A 0 Total 0 I personally scribed for SHAYY FINE MD ([email or web address]) on 10/16/24 at 11:19. Electronically submitted by Alton Gutierrez ([email or web address]). SHAYY FINE MD Oct 16, 2024 11:19
--- NOTE | 2024-10-16 12:12 | DVH ---
Date: 10/16/2024 11:16 AM Examination: XY KUB ABDOMEN SINGLE VIEW History: catherplacement Comparison: None TECHNIQUE: Frontal views of the abdomen was obtained. FINDINGS: Bowel gas pattern is unremarkable. The lung bases are unremarkable. No acute osseous abnormality identified. Left Nephrostomy tube. IMPRESSION: Nonobstructive bowel gas pattern. Large stool burden.
[2024-10-16 13:15] VITALS: BP 106/73; PULSE 77; RESP 20; TEMP 98.9; O2SAT 98
== END 2024-10-16 13:18 | disposition home or self-care (01) ==
LOC: ER 10:48
DX: N99.520 Hemorrhage of incontinent external stoma of urinary tract (principal); Z79.899 Other long term (current) drug therapy; Z85.51 Personal history of malignant neoplasm of bladder
CPT/HCPCS: 74018

== ENCOUNTER → 2024-11-08 | Outpatient (CLI) | payer OTHER ==
[2024-11-08 09:51] LABS: Urine Bacteria FEW /hpf (None Seen); Urine Blood 2+ /uL (Negative); Urine Clarity Ex.Turbid (Clear); Urine Color Light-Brown (Yellow); Urine Protein, UAD 2+ (Negative); Urine Specific Gravity 1.014 (1.001-1.035); Urine Squamous Epithelial Cell None Seen /hpf (<5); Urine Urobilinogen Normal (Negative); Urine WBC 2083 /HPF (0-5); Urine WBC Clumps PRESENT /hpf (None Seen)
[2024-11-08 10:13] LABS: Basophils # (auto) 0 10 ^3/uL (0-0.2); Basophils % (auto) 0.7 % (0.0-2.0); Eosinophils # (auto) 0 10 ^3/uL (0-0.8); Eosinophils % (auto) 0.3 % (0.0-7.0); Hematocrit 28.3 % (36.0-46.0); Hemoglobin 9.7 g/dL (12.2-16.2); Lymphocytes # (auto) 1.2 10 ^3/uL (0.4-5.4); Lymphocytes % (auto) 20.2 % (10.0-50.0); Mean Corpuscular Hemoglobin 28.5 pg (28.0-32.0); Mean Corpuscular Hgb Conc. 34.4 g/dL (32.0-36.0); Mean Corpuscular Volume 82.7 fL (80.0-100.0); Monocytes # (auto) 0.8 10 ^3/uL (0-1.3); Monocytes % (auto) 14.4 % (0.0-12.0); Neutrophils # (auto) 3.8 10 ^3/uL (1.6-8.6); Neutrophils % (auto) 64.4 % (37.0-80.0); Platelet Count (auto) 391 10^3/uL (140-450); Red Blood Cells 3.41 10^6/uL (4.0-5.20); Red Cell Distribution Width 15.8 % (11.8-14.3); White Blood Cell 5.8 10^3/uL (4.4-10.8)
[2024-11-08 10:14] LABS: Albumin 4.2 g/dL (3.2-4.8); Alkaline Phosphatase 96 U/L (46-116); Anion Gap 9 (5-15); Aspartate Aminotransferase 16 U/L (13-40); BUN/Creatinine Ratio 27.4 (10.0-20.0); Calcium 9.6 mg/dL (8.7-10.4); Carbon Dioxide 26 mmol/L (20-31); Chloride 103 mmol/L (98-107); Cholesterol 141 mg/dL (< 200); Glucose 98 mg/dL (74-106); LDL Cholesterol 64 mg/dL (< 100); Potassium 3.7 mmol/L (3.5-5.1); Sodium 138 mmol/L (136-145); Total Protein 7.4 g/dL (5.7-8.2); Triglycerides 122 mg/dL (< 150)
[2024-11-08 10:15] LABS: Bilirubin, Total 0.5 mg/dL (0.2-1.0); HDL Cholesterol 54 mg/dL (40-59)
[2024-11-08 10:17] LABS: Blood Urea Nitrogen 29 mg/dL (9-23)
[2024-11-08 10:18] LABS: Alanine Aminotransferase 9 U/L (7-40)
[2024-11-08 10:38] LABS: Uric Acid 3.9 mg/dL (3.1-7.8)
[2024-11-08 10:40] LABS: Folate (Folic Acid) 34.1 ng/mL (>5.38)
== END | disposition home or self-care (01) ==
LOC: LAB 09:09
PROVIDERS: ATTEND Internal Medicine
DX: E61.2 Magnesium deficiency (principal); R94.6 Abnormal results of thyroid function studies; E79.0 Hyperuricemia without signs of inflammatory arthritis and tophaceous disease; E55.9 Vitamin D deficiency, unspecified; R82.90 Unspecified abnormal findings in urine; R82.79 Other abnormal findings on microbiological examination of urine; D51.9 Vitamin B12 deficiency anemia, unspecified
CPT/HCPCS: 36415; 80053; 80061; 81001; 82306; 82607; 82746; 84443; 84550; 85025; 87086